=== PATIENT | male | born 1950 | race Caucasian/White ===

== ENCOUNTER 2016-10-05 19:49 | Emergency (ER) | payer MEDICARE, BC ==
[2016-10-05] MEDS ORDERED: ASPIRIN 81 MG CHEW PO STA (22:01)
[2016-10-05] MEDS ORDERED: SODIUM CHLORIDE 0.9% 1,000 ML IV STA (22:01)
[2016-10-05 22:40] LABS: Basophils # (A) 0.1 k/uL (0-0.2); Basophils % (A) 1 %; CH 32.5; Eosinophils # (A) 0.3 k/uL (0-0.7); Eosinophils % (A) 3 %; HCT 43.3 % (39.0-53.0); HDW 2.21; HGB 15.1 gm/dL (13.0-17.5); Luc # (Auto) 0.22; Luc % (Auto) 2; Lymphocytes # (A) 2.5 k/uL (1.0-4.8); Lymphocytes % (A) 25 %; MCH 32.4 pg (25.0-35.0); MCHC 34.8 g/dL (31.0-37.0); MCV 93.2 fL (80.0-100.0); Monocytes # (A) 0.7 k/uL (0-1.0); Monocytes % (A) 7 %; Neutrophils # (A) 6.1 k/uL (1.3-7.7); Neutrophils % (A) 63 %; RBC 4.65 m/uL (4.30-5.90); RDW 13.3 % (11.5-15.5); WBC 9.8 k/uL (3.8-10.6); WBC (Perox) 8.75
[2016-10-05 22:50] LABS: ALT 54 U/L (21-72); AST 28 U/L (17-59); Alkaline Phosphatase 71 U/L (38-126); Amylase 68 U/L (30-110); Anion Gap 11 mmol/L; Blood Urea Nitrogen 15 mg/dL (9-20); Calcium 9.2 mg/dL (8.4-10.2); Carbon Dioxide 23 mmol/L (22-30); Chloride 106 mmol/L (98-107); Glucose 87 mg/dL (74-99); Magnesium 1.8 mg/dL (1.6-2.3); Non-African American GFR(MDRD) >60 (>60 ml/min/1.73 sqM); Potassium 4.2 mmol/L (3.5-5.1); Sodium 140 mmol/L (137-145); Total Bilirubin 0.4 mg/dL (0.2-1.3); Total Protein 6.4 g/dL (6.3-8.2)
[2016-10-05 22:51] LABS: Partial Thromboplastin Time 22.8 sec (22.0-30.0); Prothrombin Time 10.3 sec (9.0-12.0)
[2016-10-05 23:00] LABS: Creatine Kinase 256 U/L (55-170)
[2016-10-05] MEDS ORDERED: KETOROLAC 30 MG/ML 1 ML VIAL IVP STA (23:03)
[2016-10-05] MEDS ORDERED: MAG HYDROX/AL HYDROX/SIMETH 30 ML, HYOSCYAMINE ELIXIR 10 ML, CIMETIDINE HCL 300 MG, LID... PO STA ×4 (23:03)
--- NOTE | 2016-10-05 23:08 | ED ---
Back Pain HPI - General Chief Complaint: Back Pain/Injury Stated Complaint: Back Pain Source: patient, RN notes reviewed, old records reviewed Limitations: no limitations - History of Present Illness Initial Comments: This is a 66-year-old male presenting to the emergency Department chief complaint of lower back pain radiates down both of his legs for the past 3 weeks. He reports it seemed to start after a golf outing. He also reports that he's had some pain that seems to be continuous. He states that it's been going on for the past 3 weeks or longer than this. He states that he is not specifically short of breath here. He reports that he does have a history of cardiac stents. He states that he is was had previously normal EKGs but when they did a cardiac catheterization they noted that he had significantly clogged arteries. Patient reports no abnormal shortness of breath. He states it seems just to be a dull ache like a chest pain. He could relate this to being to GERD as well. Patient denies any saddle anesthesias. - Related Data Home Medications Medication Instructions Recorded Confirmed Aspirin EC [Ecotrin Low Dose] 81 mg PO DAILY 10/05/16 10/05/16 Atorvastatin [Lipitor] 40 mg PO HS 10/05/16 10/05/16 Beclomethasone Dipropionate [Qvar 1 puff INHALATION RT-DAILY PRN 10/05/16 80 mcg] Fluticasone Nasal [place] [Flonase 2 spr EA NOSTRIL DAILY PRN 10/05/16 10/05/16 Nasal [place]] Garlic 1 tab PO DAILY 10/05/16 10/05/16 Ginkgo Biloba 500 mg PO DAILY 10/05/16 10/05/16 Hydrocodone/Acetaminophen 1 tab PO QID PRN 10/05/16 10/05/16 [Hydrocodone/Acetaminophen 10-300] L.acidoph,Paracasei, B.lactis 1 cap PO DAILY 10/05/16 10/05/16 [Probiotic] Levothyroxine Sodium [Synthroid] 25 mcg PO DAILY 10/05/16 10/05/16 Losartan [Cozaar] 25 mg PO DAILY 10/05/16 10/05/16 Lutein 20 mg PO DAILY 10/05/16 10/05/16 Melatonin 10 mg PO HS PRN 10/05/16 10/05/16 Methylsulfonylmethane [MSM] 1,000 mg PO DAILY 10/05/16 10/05/16 Naproxen 500 mg PO DAILY PRN 10/05/16 10/05/16 [place] Q Plus 1 tab PO DAILY 10/05/16 10/05/16 Prasugrel [Effient] 10 mg PO DAILY 10/05/16 10/05/16 amLODIPine [Norvasc] 5 mg PO DAILY 10/05/16 10/05/16 Previous Rx's Medication Instructions Recorded Cyclobenzaprine [Flexeril] 10 mg PO TID #15 tab 10/06/16 HYDROcodone/APAP 10-325MG [[place] 1 tab PO Q6H PRN #10 tab 10/06/16 10-325] Allergies Allergy/AdvReac Type Severity Reaction Status Date / Time Penicillins Allergy Unknown Verified 10/05/16 20:44 Childhood Review of Systems ROS Statement: Those systems with pertinent positive or pertinent negative responses have been documented in the HPI. ROS Other: All systems not noted in ROS Statement are negative. Past Medical History Past Medical History: Chest Pain / Angina, Hyperlipidemia, Hypertension History of Any Multi-Drug Resistant Organisms: None Reported Past Surgical History: Heart Catheterization With Stent, Joint Replacement Additional Past Surgical History / Comment(s): right hip, left knee arthroscopy , cyst left ankle. Past Psychological History: No Psychological Hx Reported Smoking Status: Never smoker Past Alcohol Use History: None Reported Past Drug Use History: None Reported General Exam - General Exam Comments Initial Comments: 56-year-old male. No acute distress. Limitations: no limitations General appearance: alert, in no apparent distress Head exam: Present: atraumatic, normocephalic, normal inspection Eye exam: Present: normal appearance, PERRL, EOMI. Absent: scleral icterus, conjunctival injection, periorbital swelling ENT exam: Present: normal exam, mucous membranes moist Neck exam: Present: normal inspection. Absent: tenderness, meningismus, lymphadenopathy Respiratory exam: Present: normal lung sounds bilaterally. Absent: respiratory distress, wheezes, rales, rhonchi, stridor Cardiovascular Exam: Present: regular rate, normal rhythm, normal heart sounds. Absent: systolic murmur, diastolic murmur, rubs, gallop, clicks GI/Abdominal exam: Present: soft, normal bowel sounds. Absent: distended, tenderness, guarding, rebound, rigid Extremities exam: Present: normal inspection, full ROM, normal capillary refill. Absent: tenderness, pedal edema, joint swelling, calf tenderness Back exam: Present: normal inspection, tenderness (lumbar spinal tenderness. ) Neurological exam: Present: alert, oriented X3, CN II-XII intact Psychiatric exam: Present: normal affect, normal mood Skin exam: Present: warm, dry, intact, normal color. Absent: rash Course Vital Signs 10/05/16 10/06/16 19:57 00:58 Temperature 98.8 F 98.2 F Pulse Rate 71 86 Respiratory 20 16 Rate Blood Pressure 179/92 158/78 O2 Sat by Pulse 98 99 Oximetry Medical Decision Making - Medical Decision Making This is a 66-year-old male presenting to the emergency Department chief complaint of lower back pain radiates down both of his legs for the past 3 weeks. He reports it seemed to start after a golf outing. He also reports that he's had some pain that seems to be continuous. He states that it's been going on for the past 3 weeks or longer than this. He states that he is not specifically short of breath here. He reports that he does have a history of cardiac stents. He states that he is was had previously normal EKGs but when they did a cardiac catheterization they noted that he had significantly clogged arteries. Patient reports no abnormal shortness of breath. He states it seems just to be a dull ache like a chest pain. He could relate this to being to GERD as well. Patient denies any saddle anesthesias. Patietnt EKG and cardiac enzymes are normal. CXR reviewed, negative for any acute process. Patient lumbar spine has chronic degenerative changes. Discussed that for the length of time for chest pain, andnormal lab work means it is likely another etiology such as GERD. Discussed close follow up with PCP for further evaluation. Patient will be discharged with pain medication for his back pain. - Lab Data Result diagrams: 10/05/16 22:25 10/05/16 22:25 Lab Results 10/05/16 10/05/16 10/05/16 Range/Units 22:25 22:25 22:25 WBC 9.8 (3.8-10.6) k/uL RBC 4.65 (4.30-5.90) m/uL Hgb 15.1 (13.0-17.5) gm/dL Hct 43.3 (39.0-53.0) % MCV 93.2 (80.0-100.0) fL MCH 32.4 (25.0-35.0) pg MCHC 34.8 (31.0-37.0) g/dL RDW 13.3 (11.5-15.5) % Plt Count 216 (150-450) k/uL Neutrophils % 63 % Lymphocytes % 25 % Monocytes % 7 % Eosinophils % 3 % Basophils % 1 % Neutrophils # 6.1 (1.3-7.7) k/uL Lymphocytes # 2.5 (1.0-4.8) k/uL Monocytes # 0.7 (0-1.0) k/uL Eosinophils # 0.3 (0-0.7) k/uL Basophils # 0.1 (0-0.2) k/uL PT (9.0-12.0) sec INR (<1.2) APTT (22.0-30.0) sec Sodium 140 (137-145) mmol/L Potassium 4.2 (3.5-5.1) mmol/L Chloride 106 (98-107) mmol/L Carbon Dioxide 23 (22-30) mmol/L Anion Gap 11 mmol/L BUN 15 (9-20) mg/dL Creatinine 0.90 (0.66-1.25) mg/dL Est GFR (MDRD) Af Amer >60 (>60 ml/min/1.73 sqM) Est GFR (MDRD) Non-Af >60 (>60 ml/min/1.73 sqM) Glucose 87 (74-99) mg/dL Calcium 9.2 (8.4-10.2) mg/dL Magnesium 1.8 (1.6-2.3) mg/dL Total Bilirubin 0.4 (0.2-1.3) mg/dL AST 28 (17-59) U/L ALT 54 (21-72) U/L Alkaline Phosphatase 71 (38-126) U/L Total Creatine Kinase 256 H (55-170) U/L CK-MB (CK-2) 3.8 H* (0.0-2.4) ng/mL CK-MB (CK-2) Rel Index 1.5 Troponin I <0.012 (0.000-0.034) ng/mL NT-Pro-B Natriuret Pep pg/mL Total Protein 6.4 (6.3-8.2) g/dL Albumin 3.8 (3.5-5.0) g/dL Amylase 68 (30-110) U/L Lipase 249 (23-300) U/L 10/05/16 10/05/16 Range/Units 22:25 22:25 WBC (3.8-10.6) k/uL RBC (4.30-5.90) m/uL Hgb (13.0-17.5) gm/dL Hct (39.0-53.0) % MCV (80.0-100.0) fL MCH (25.0-35.0) pg MCHC (31.0-37.0) g/dL RDW (11.5-15.5) % Plt Count (150-450) k/uL Neutrophils % % Lymphocytes % % Monocytes % % Eosinophils % % Basophils % % Neutrophils # (1.3-7.7) k/uL Lymphocytes # (1.0-4.8) k/uL Monocytes # (0-1.0) k/uL Eosinophils # (0-0.7) k/uL Basophils # (0-0.2) k/uL PT 10.3 (9.0-12.0) sec INR 1.0 (<1.2) APTT 22.8 (22.0-30.0) sec Sodium (137-145) mmol/L Potassium (3.5-5.1) mmol/L Chloride (98-107) mmol/L Carbon Dioxide (22-30) mmol/L Anion Gap mmol/L BUN (9-20) mg/dL Creatinine (0.66-1.25) mg/dL Est GFR (MDRD) Af Amer (>60 ml/min/1.73 sqM) Est GFR (MDRD) Non-Af (>60 ml/min/1.73 sqM) Glucose (74-99) mg/dL Calcium (8.4-10.2) mg/dL Magnesium (1.6-2.3) mg/dL Total Bilirubin (0.2-1.3) mg/dL AST (17-59) U/L ALT (21-72) U/L Alkaline Phosphatase (38-126) U/L Total Creatine Kinase (55-170) U/L CK-MB (CK-2) (0.0-2.4) ng/mL CK-MB (CK-2) Rel Index Troponin I (0.000-0.034) ng/mL NT-Pro-B Natriuret Pep 60 pg/mL Total Protein (6.3-8.2) g/dL Albumin (3.5-5.0) g/dL Amylase (30-110) U/L Lipase (23-300) U/L 10/06/16 00:37 EKG shows normal sinus rhythm. Ventricular rate of 61 beats were minute. Verbal 164 ms. QRS ration 80 ms. QT QTc is 424-426 ms Disposition Clinical Impression: Chronic back pain, Atypical chest pain Disposition: HOME SELF-CARE Condition: Good Instructions: Chest Pain (ED), Chronic Back Pain (ED) Additional Instructions: Patient arrives to follow-up with her primary care provider within the next 24- 48 hours. Take the pain medications as prescribed. Also is a muscle relaxers as directed. Apply heat and ice to her back. Recommended follow up with her primary care return or recurrence to further evaluation for aortic chest pain and possible esophageal issues. Prescriptions: Cyclobenzaprine [Flexeril] 10 mg PO TID #15 tab HYDROcodone/APAP 10-325MG [[place] 10-325] 1 tab PO Q6H PRN #10 tab PRN Reason: Pain Referrals: Corey Matson MD [Primary Care Provider] - 1-2 days Time of Disposition: 00:33
[2016-10-05 23:13] LABS: Troponin I <0.012 ng/mL (0.000-0.034)
[2016-10-05 23:23] LABS: Creatine Kinase MB 3.8 ng/mL (0.0-2.4)
--- NOTE | 2016-10-05 23:58 | XR ---
EXAM: XR Chest, 2 Views CLINICAL HISTORY: Reason: Chest Pain TECHNIQUE: Frontal and lateral views of the chest. COMPARISON: None FINDINGS: Lungs/pleura: Normal. No focal consolidation. No pleural effusion or pneumothorax. Heart/mediastinum: Normal. No cardiomegaly. Soft tissues: Unremarkable. Bones: No acute fracture. Degenerative changes of the acromioclavicular joints. IMPRESSION: No acute disease identified.
--- NOTE | 2016-10-06 | XR ---
EXAM: XR Lumbar Spine, 2 or 3 Views CLINICAL HISTORY: Reason: lower back pain that radiates down both legs x a month. More pain after golfing today. TECHNIQUE: Frontal and lateral views of the lumbar spine. COMPARISON: None FINDINGS: Bones: No acute fracture or subluxation identified. Mild multilevel degenerative disc disease throughout the lumbar spine. Soft tissues: Normal. IMPRESSION: No acute abnormality identified. Mild degenerative disc disease.
[2016-10-06] MEDS ORDERED: HYDROmorphone 1 MG/ML 1 ML SYRINGE IVP STA (00:34)
[2016-10-06] MEDS ORDERED: ORPHENADRINE 30 MG/ML 2 ML VIAL IVP STA (00:34)
[2016-10-06 00:59] VITALS: BP 158/78; PULSE 86; RESP 16; TEMP 98.2
== END 2016-10-06 00:58 | disposition home or self-care (01) ==
LOC: EC 19:49
DX: M54.5 Low back pain (principal); G89.29 Other chronic pain; R07.9 Chest pain, unspecified; I10 Essential (primary) hypertension; E78.5 Hyperlipidemia, unspecified; Z95.5 Presence of coronary angioplasty implant and graft; Z79.82 Long term (current) use of aspirin; Z79.899 Other long term (current) drug therapy; Z88.0 Allergy status to penicillin
CPT/HCPCS: 36415; 93005; 83880; 80053; 82150; 82550; 82553; 83690; 83735; 84484; 85025; 85610; 85730; 71020; 72100; 99284; 96374; 96375 ×2; 96361 ×3; J2360; J1885; J1170

== ENCOUNTER → 2016-10-17 | Outpatient (CLI) | payer BC, MEDICARE, OTHER ==
--- NOTE | 2016-10-17 21:31 | MR ---
EXAMINATION TYPE: MR lumbar spine wo con DATE OF EXAM: 10/17/2016 COMPARISON: Lumbar spine x-ray October 05, 2016. HISTORY: Other intervertebral disc degeneration per order. Low back pain radiating into bilateral but tocks for one month per patient. TECHNIQUE: Multiplanar, multisequence imaging of the lumbar spine is performed without IV contrast. FINDINGS: Survey images shows artifact right pelvis likely from metallic hardware possibly from hip a rthroplasty. Sagittal images of the lumbar spine show vertebral body heights to appear satisfactory. There is some loss of normal lumbar lordosis or straightening appreciated. Multilevel disc desiccatio n is seen. There is mild to moderate multilevel disc space narrowing with relative sparing of L3-L4 l evel. Multilevel posterior disc herniations are seen most prominent at L2-L3 level on sagittal images . The conus medullaris is normal in position and signal ending at superior L1 level. There is mild t o moderate multilevel anterior spurring seen. There is heterogeneous increased T1 and T2 signal consi stent with [place] type II degenerative change centered at L2-L3 disc space. Large hemangioma is noted involving anterior portion of L4 vertebra. Axial images show the T12-L1 level to appear within normal limits. Axial images at the L1-L2 level show moderate broad disc bulge with central disc protrusion component effacing anterior thecal sac on axial image 32. Bilateral neural foramina are patent. Axial images at L2-L3 level show beginning prominence of epidural fat. Spinal canal is small caliber. There is moderate to severe broad disc bulge effacing anterior thecal sac. There is right extradural extra medullary lesion on axial image 27 just above disc herniation that is isointense on T1-weighte d images to spinal canal but hyperintense on T2-weighted images. Findings could reflect free disc fra gment. It encroaches along right lateral margin of spinal canal measuring approximately [address] Bilateral neural foramina are patent at this level. Axial images at L3-L4 level show mild/moderate broad-based posterior disc protrusion. Spinal canal is grossly preserved. There is mild right greater than left anterior inferior neural foraminal narrowin g at this level identified. Axial images L4-L5 level show mild to moderate facet degenerative changes effacing posterior lateral thecal sac. There is broad disc bulge with central disc protrusion component effacing anterior thecal sac and axial image 10. There is mild to moderate bilateral anterior inferior neural foraminal narro wing at this level identified. Axial images at L5-S1 level show mild facet degenerative changes bilaterally. There is prominence of epidural fat at this level. Spinal canal is preserved. There is mild bilateral neural foraminal narro wing at this level due to facet arthropathy. No suspicious retroperitoneal findings are seen. Paraspinal muscle bulk shows asymmetric mild to mode rate right-sided iliopsoas atrophy. IMPRESSION: Straightening of lumbar spine with multilevel degenerative changes seen, most prominent f indings are noted L2-L3 and L4-L5 levels. There is suspected free disc fragment right extradural leve l of thecal sac, other etiologies are not excluded. Other degenerative findings are noted as detailed above. Asymmetric mild to moderate right-sided iliopsoas muscular atrophy is noted.
== END | disposition home or self-care (01) ==
LOC: RADMRIMAIN 20:16
PROVIDERS: ATTEND Internal Medicine
DX: M47.817 Spondylosis without myelopathy or radiculopathy, lumbosacral region (principal); M62.58 Muscle wasting and atrophy, not elsewhere classified, other site
CPT/HCPCS: 72148

== ENCOUNTER 2016-11-05 10:02 | Day surgery (SDC) | payer BC, MEDICARE, OTHER ==
[2016-11-04 08:42] VITALS: BMI 40.6
[~2016-11-05 10:02] MED LIST: LACTATED RINGERS 1,000 ML IV SCH
[2016-11-05 11:52] VITALS: TEMP 97
[2016-11-05] MEDS ORDERED: LIDOCAINE 1% 20 ML VIAL (10MG/ML) FOR IV START INTRADERMA ONE (12:02)
[2016-11-05] MEDS ORDERED: PROPOFOL 10 MG/ML 20 ML VIAL IV ONE (12:21)
--- NOTE | 2016-11-05 12:39 | P.PCN ---
Date of Procedure: 11/05/16 Preoperative Diagnosis: Postoperative Diagnosis: Procedure(s) Performed: BRIEF HISTORY: Patient is a 66-year-old, pleasant, white male, scheduled for an upper endoscopy as a part of evaluation of chest pressure and intermittent dysphagia to solids for the last several months duration.. PROCEDURE PERFORMED: Esophagogastroduodenoscopy. PREOPERATIVE DIAGNOSIS: Chest pressure/intermittent dysphagia to solids. IV sedation per anesthesia. PROCEDURE: After informed consent was obtained, the patient was brought into the endoscopy unit. IV sedation was administered by Anesthesia under continuous monitoring. Initially the Olympus GIF-140 video endoscope was inserted into the mouth. Esophagus intubated without any difficulty. It was gradually advanced into the stomach and duodenum and carefully examined. The bulb and the second part of the duodenum appeared normal. The scope at this time was withdrawn to the stomach, adequately insufflated with air, and upon careful examination, mucosa of the antrum, had mild gastritis and biopsies were done from this area. The body, cardia and the fundus appeared normal. The scope was then withdrawn into the esophagus. The GE junction was located at 39 cm from the incisors. There were 2 superficial erosions at the GE junction consistent with LA grade B reflux esophagitis. The rest of the esophagus appeared normal and the patient tolerated the procedure well. IMPRESSION: 1. LA grade B reflux esophagitis. 2 , mild antral gastritis. RECOMMENDATIONS: The findings of this examination were discussed with the patient as well as her hoarseness family. He was advised to follow with the biopsy results. He was given a prescription for Zantac 150 milligrams twice daily and was briefly educated about antireflux measures.. Implants: Indications for Procedure: Operative Findings: Description of Procedure:
[2016-11-05 13:01] VITALS: RESP 18
[2016-11-05 13:19] VITALS: BP 145/92; PULSE 65
== END 2016-11-05 13:39 | disposition home or self-care (01) ==
LOC: ORWHC2ENDO 10:02
PROVIDERS: ATTEND Internal Medicine Gastroenterology
DX: K21.0 Gastro-esophageal reflux disease with esophagitis (principal); K29.50 Unspecified chronic gastritis without bleeding; I25.10 Atherosclerotic heart disease of native coronary artery without angina pectoris; I10 Essential (primary) hypertension; F17.290 Nicotine dependence, other tobacco product, uncomplicated; Z95.5 Presence of coronary angioplasty implant and graft; G47.33 Obstructive sleep apnea (adult) (pediatric); Z79.51 Long term (current) use of inhaled steroids; Z79.899 Other long term (current) drug therapy; Z88.0 Allergy status to penicillin
CPT/HCPCS: 43239; 88305; 88342

== ENCOUNTER → 2017-10-07 | Outpatient (CLI) | payer MEDICARE, BC, OTHER ==
--- NOTE | 2017-10-07 13:17 | XR ---
EXAMINATION TYPE: XR KUB DATE OF EXAM: 10/07/2017 COMPARISON: NONE HISTORY: Renal calcification, pain TECHNIQUE: One view abdominal series FINDINGS: The osseous structures are intact. The bowel gas pattern is nonspecific. Postsurgical change involvi ng the right. Hypertrophic change spine. Left changes of sacroiliitis. There is a calcification overlying the left sacrum measuring 4.2 mm this is nonspecific location. Impression: 1. There is a left hemipelvic calcification measuring 4.2 mm which is nonspecific. If there is concer n for ureteral calculus correlate with CT scan.
== END | disposition home or self-care (01) ==
LOC: RADXRMAIN 12:33
PROVIDERS: ATTEND Urology
DX: N50.89 Other specified disorders of the male genital organs (principal)
CPT/HCPCS: 74018

== ENCOUNTER 2018-05-26 10:37 | Observation (INO) | payer BC, MEDICARE, OTHER ==
[2018-05-26] MEDS ORDERED: ASPIRIN 81 MG PO STA (11:11)
--- NOTE | 2018-05-26 11:15 | ED ---
General Adult HPI - General Chief complaint: Shortness of Breath Stated complaint: chest pain Time Seen by Provider: 05/26/18 10:49 Source: patient Mode of arrival: wheelchair Limitations: no limitations - History of Present Illness Initial comments: Dictation was produced using Rico dictation software. please excuse any grammatical, word or spelling errors. Chief Complaint: 68-year-old male presents with left neck pain 3 weeks and chest pain and shortness of breath since last night. History of Present Illness: Patient is 68-year-old male presents with multiple complaints at this time. Patient states her last 3-4 weeks she's been complaining of some neck pain. Patient also does feel paresthesias to the left lateral arm. Patient has his symptoms evaluated by chiropractor. He states he's also had multiple TENS unit. States his pain is stable however he is here more for chest pain or shortness of breath. Patient has history of coronary artery disease. 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 Patient was given nitroglycerin last night with improvement of symptoms. He reports today because patient still feeling slightly short of breath. When asked if he is concerned more about his chest pain and shortness of breath versus is left upper extremity neck symptoms he reports that his shortness of breath. Patient is scheduled to have a cardiac stress test soon however given the presence of his symptoms he came to the emergency department. Patient's collar pointer is Dr. Wagner at [facility]. Patient's chest and dyspnea symptoms he reports feeling unrelated The ROS documented in this emergency department record has been reviewed and confirmed by me. Those systems with pertinent positive or negative responses have been documented in the HPI. All other systems are other negative and/or noncontributory. PHYSICAL EXAM: General Impression: Alert and oriented x3, mild acute distress HEENT: Normocephalic atraumatic, extra-ocular movements intact, pupils equal and reactive to light bilaterally, mucous membranes moist. Cardiovascular: Heart regular rate and rhythm, S1&S2 audible, no murmurs, rubs or gallops Chest: Lungs clear to auscultation bilaterally, no rhonchi, no wheeze, no rales Abdomen: Bowel sounds present, abdomen soft, non-tender, non-distended, no organomegaly Musculoskeletal: Pulses present and equal in all extremities, no peripheral edema Motor: no focal deficits noted Neurological: CN II-XII grossly intact, no focal motor or sensory deficits noted Skin: Intact with no visualized rashes Psych: Normal affect and mood ED course: 68-year-old male presents with chest pain and shortness of breath since yesterday. He does report associated diaphoresis. All signs upon arrival are within acceptable limits. Patient denies any chest or dyspnea symptoms at this time. Patient also has some left upper extremity pain which appear to be consistent with radiculopathy given that pain starts in the neck and radiate down to his lateral left upper extremity. At this time there is no clinical suspicion that his chest pain and shortness of breath symptoms are related given that his neck and left upper showing symptoms have been chronic over the last 3- 4 weeks. She was chest pain and shortness of breath symptoms started yesterday and was improved with nitroglycerin.Laboratory evaluation obtained. CBC, coag panel, d-dimer negative. Metabolic panel is unremarkable. Cardiac enzymes negative. Chest x-ray is unremarkable. Patient's clinical presentation is consistent for atypical chest pain with typical features. He does report some improvement of symptoms with nitroglycerin. Patient to be admitted to observation for serial troponins and cardiology consultation. Given progression of symptoms is concerned that patient's symptoms reflect acute coronary syndrome given his comorbidities and history of coronary artery disease. Patient given aspirin. At this point patient does not complain of any symptoms at this time. We will withhold heparin at this time. EKG interpretation: Ventricular rate 66, normal sinus rhythm, MI interval 152, QS 86, QTC 408. No MI prolongation, no QTC prolongation, no ST or T-wave changes noted. Overall, this EKG is unremarkable - Related Data Home Medications Medication Instructions Recorded Confirmed Aspirin EC [Ecotrin Low Dose] 81 mg PO DAILY 10/05/16 11/05/16 Beclomethasone Dipropionate [Qvar 1 puff INHALATION RT-DAILY PRN 10/05/16 05/26/18 80 mcg] Winn Q Plus 1 tab PO DAILY 10/05/16 05/26/18 amLODIPine [Norvasc] 5 mg PO DAILY 10/05/16 05/26/18 Multivitamins, Thera [Multivitamin 1 tab PO DAILY 11/04/16 05/26/18 (formulary)] Vits A,C,E/Lutein/Minerals 1 each PO DAILY 11/04/16 05/26/18 [Ocuvite with Lutein Tablet] Atorvastatin [Lipitor] 40 mg PO HS 05/26/18 05/26/18 Cyclobenzaprine [Flexeril] 10 mg PO DAILY PRN 05/26/18 05/26/18 Fluticasone Nasal [place] [Flonase 1 spray EA NOSTRIL DAILY 05/26/18 05/26/18 Nasal [place]] Losartan [Cozaar] 50 mg PO DAILY 05/26/18 05/26/18 Nitroglycerin Sl Tabs [Nitrostat] 0.4 mg SL DIRECTED 05/26/18 05/26/18 Allergies Allergy/AdvReac Type Severity Reaction Status Date / Time Latex, Natural Rubber Allergy Unknown Verified 05/26/18 11:13 Penicillins Allergy Unknown Verified 05/26/18 11:13 Childhood Review of Systems ROS Statement: Those systems with pertinent positive or pertinent negative responses have been documented in the HPI. ROS Other: All systems not noted in ROS Statement are negative. Past Medical History Past Medical History: Coronary Artery Disease (CAD), Chest Pain / Angina, Hyperlipidemia, Hypertension History of Any Multi-Drug Resistant Organisms: None Reported Past Surgical History: Heart Catheterization With Stent Additional Past Surgical History / Comment(s): right hip, left knee arthroscopy, cyst left ankle. Past Psychological History: No Psychological Hx Reported Smoking Status: Never smoker Past Alcohol Use History: None Reported Past Drug Use History: None Reported General Exam Limitations: no limitations Course Vital Signs 05/26/18 10:39 Temperature 98 F Pulse Rate 75 Respiratory 19 Rate Blood Pressure 157/94 O2 Sat by Pulse 95 Oximetry Medical Decision Making - Lab Data Result diagrams: 05/26/18 11:01 05/26/18 11:01 Lab Results 05/26/18 05/26/18 05/26/18 Range/Units 11:01 11:01 11:01 WBC 5.7 (3.8-10.6) k/uL RBC 4.89 (4.30-5.90) m/uL Hgb 15.2 (13.0-17.5) gm/dL Hct 45.9 (39.0-53.0) % MCV 93.8 (80.0-100.0) fL MCH 31.0 (25.0-35.0) pg MCHC 33.0 (31.0-37.0) g/dL RDW 12.8 (11.5-15.5) % Plt Count 232 (150-450) k/uL Neutrophils % GROUP THERAPIST Lymphocytes % GROUP THERAPIST Monocytes % GROUP THERAPIST Eosinophils % GROUP THERAPIST Basophils % GROUP THERAPIST Neutrophils # GROUP THERAPIST Lymphocytes # GROUP THERAPIST Monocytes # GROUP THERAPIST Eosinophils # GROUP THERAPIST Basophils # GROUP THERAPIST PT 10.0 (9.0-12.0) sec INR 0.9 (<1.2) APTT 23.8 (22.0-30.0) sec D-Dimer 0.42 (<0.60) mg/L FEU Sodium 139 (137-145) mmol/L Potassium 4.6 (3.5-5.1) mmol/L Chloride 105 (98-107) mmol/L Carbon Dioxide 27 (22-30) mmol/L Anion Gap 7 mmol/L BUN 13 (9-20) mg/dL Creatinine 0.84 (0.66-1.25) mg/dL Est GFR (CKD-EPI)AfAm >90 (>60 ml/min/1.73 sqM) Est GFR (CKD-EPI)NonAf >90 (>60 ml/min/1.73 sqM) Glucose 87 (74-99) mg/dL Calcium 9.9 (8.4-10.2) mg/dL Magnesium 1.9 (1.6-2.3) mg/dL Total Bilirubin 0.7 (0.2-1.3) mg/dL AST 40 (17-59) U/L ALT 52 (21-72) U/L Alkaline Phosphatase 58 (38-126) U/L Troponin I (0.000-0.034) ng/mL Total Protein 7.0 (6.3-8.2) g/dL Albumin 4.1 (3.5-5.0) g/dL 05/26/18 Range/Units 11:01 WBC (3.8-10.6) k/uL RBC (4.30-5.90) m/uL Hgb (13.0-17.5) gm/dL Hct (39.0-53.0) % MCV (80.0-100.0) fL MCH (25.0-35.0) pg MCHC (31.0-37.0) g/dL RDW (11.5-15.5) % Plt Count (150-450) k/uL Neutrophils % Lymphocytes % Monocytes % Eosinophils % Basophils % Neutrophils # Lymphocytes # Monocytes # Eosinophils # Basophils # PT (9.0-12.0) sec INR (<1.2) APTT (22.0-30.0) sec D-Dimer (<0.60) mg/L FEU Sodium (137-145) mmol/L Potassium (3.5-5.1) mmol/L Chloride (98-107) mmol/L Carbon Dioxide (22-30) mmol/L Anion Gap mmol/L BUN (9-20) mg/dL Creatinine (0.66-1.25) mg/dL Est GFR (CKD-EPI)AfAm (>60 ml/min/1.73 sqM) Est GFR (CKD-EPI)NonAf (>60 ml/min/1.73 sqM) Glucose (74-99) mg/dL Calcium (8.4-10.2) mg/dL Magnesium (1.6-2.3) mg/dL Total Bilirubin (0.2-1.3) mg/dL AST (17-59) U/L ALT (21-72) U/L Alkaline Phosphatase (38-126) U/L Troponin I <0.012 (0.000-0.034) ng/mL Total Protein (6.3-8.2) g/dL Albumin (3.5-5.0) g/dL Disposition Clinical Impression: Chest pain Disposition: ADMITTED IP TO THIS [facility] Condition: Fair Referrals: Jose Pina DO [Primary Care Provider] - 1-2 days Decision Time: 12:20
[2018-05-26 11:31] LABS: HCT 45.9 % (39.0-53.0); HGB 15.2 gm/dL (13.0-17.5); MCV 93.8 fL (80.0-100.0); Mean Platelet Volume 6.8; Platelet Count 232 k/uL (150-450); RBC 4.89 m/uL (4.30-5.90); RDW 12.8 % (11.5-15.5); WBC 5.7 k/uL (3.8-10.6)
--- NOTE | 2018-05-26 11:39 | XR ---
EXAMINATION TYPE: XR chest 2V DATE OF EXAM: 05/26/2018 COMPARISON: Chest x-ray October 05, 2016 HISTORY: Chest pain into left arm with shortness of breath TECHNIQUE: Frontal and lateral views of the chest are obtained. FINDINGS: Underlying emphysematous change is felt present. There is no focal air space opacity, pleu ral effusion, or pneumothorax seen. The cardiac silhouette size is stable and upper limits of normal with ectatic thoracic aorta. The osseous structures are intact. IMPRESSION: No acute cardiopulmonary process. No significant change from prior.
[2018-05-26 11:45] LABS: ALT 52 U/L (21-72); AST 40 U/L (17-59); Albumin 4.1 g/dL (3.5-5.0); Alkaline Phosphatase 58 U/L (38-126); Anion Gap 7 mmol/L; Blood Urea Nitrogen 13 mg/dL (9-20); Calcium 9.9 mg/dL (8.4-10.2); Carbon Dioxide 27 mmol/L (22-30); Chloride 105 mmol/L (98-107); Glucose 87 mg/dL (74-99); Magnesium 1.9 mg/dL (1.6-2.3); Potassium 4.6 mmol/L (3.5-5.1); Sodium 139 mmol/L (137-145); Total Bilirubin 0.7 mg/dL (0.2-1.3)
[2018-05-26 11:49] LABS: D-Dimer 0.42 mg/L FEU (<0.60); INR 0.9 (<1.2); Partial Thromboplastin Time 23.8 sec (22.0-30.0)
[2018-05-26] MEDS ORDERED: NITROGLYCERIN SL TABS 0.4 MG TAB SUBLINGUAL PRN (12:17)
[2018-05-26 12:21] LABS: Lymphocytes % (A) 28 %; Neutrophils % (A) 52 %
[2018-05-26 12:22] LABS: Basophils % (A) 1 %; Eosinophils % (A) 5 %; Monocytes % (A) 11 %
[2018-05-26 12:23] LABS: Lymphocytes # (A) 1.6 k/uL (1.0-4.8); Monocytes # (A) 0.6 k/uL (0-1.0)
[2018-05-26 12:24] LABS: Eosinophils # (A) 0.3 k/uL (0-0.7)
[2018-05-26 15:58] VITALS: RESP 18
--- NOTE | 2018-05-26 16:11 | HP ---
HISTORY AND PHYSICAL CHIEF COMPLAINT: [id number] male presents with left neck pain x3 weeks radiating down his left leg associated with some atypical chest pain and some shortness of breath. He is being treated by a chiropractor for cervical disc disease with a TENS unit. He is here more for his chest pain or shortness of breath than his neck. He has a history of coronary artery disease and LAD stent 3 years ago. He was given nitroglycerin last night with improvement of his symptoms. He became short of breath. He had a negative D-dimer in the ER and a negative chest x-ray. He was admitted for cardiac stress test after [place] has been ruled out. REVIEW OF SYSTEMS: Fourteen-point review of systems negative except for mentioned in HPI. MEDICATION LIST: 1. Amlodipine 5 mg daily. 2. Qvar 80 two puffs b.i.d. 3. Ecotrin daily. 4. Lipitor 40 mg daily. 5. Cozaar 50 mg daily. 6. Nitroglycerin sublingually p.r.n. ALLERGIES: PENICILLIN. PHYSICAL EXAMINATION: Temperature 98, pulse 75, respiratory rate 16 to 20, blood pressure 157/94, oxygen 95%. LABS: Essentially normal. Negative D-dimer. Negative chest x-ray. ASSESSMENT: 1. Atypical chest pain. 2. History of asthma. 3. History of coronary artery disease with percutaneous transluminal coronary angioplasty 3 years ago. Will start his Qvar inhaler. Rule him out for [place]. Await cardiology consult. MMODL / IJN: [id number] /
--- NOTE | 2018-05-26 16:15 | CT ---
EXAMINATION TYPE: CT neck chest without con DATE OF EXAM: 05/26/2018 COMPARISON: NONE HISTORY: lt neck/lt shoulder pain CT DLP: 1156.3 mGycm. Automated Exposure Control for Dose Reduction was Utilized. TECHNIQUE: CT scan of the neck and thorax are performed without IV contrast. FINDINGS: NECK: Note is made lack of IV contrast makes evaluation for subtle mucosal lesions and neck adenopath y suboptimal. Visualized airway is grossly clear. Thyroid gland is normal in size. Parotid and subman dibular glands are felt within normal limits. There are scattered subcentimeter lymph nodes throughou t the neck bilaterally. No definitive greater than 1 cm adenopathy is seen. Cervical spine shows mode rate narrowing and spurring at C6-C7 level. There is moderate mucosal thickening seen in both maxilla ry sinuses with some dependent fluid. LUNGS: The lungs are grossly clear, there is no concerning parenchymal mass or nodule identified. T here is no pleural effusion or pneumothorax seen. The tracheobronchial tree is patent. MEDIASTINUM: Lack of IV contrast is noted to limit evaluation for mediastinal and especially hilar ad enopathy. There are no definitive greater than 1 cm hilar or mediastinal lymph nodes. No significan t pericardial effusion is seen. Mild cardiomegaly is present. There is prominent coronary artery calc ification and/or stent in the proximal LAD, correlate clinically. OTHER: Simple appearing 1.9 cm thin-walled cyst right hepatic lobe axial image 52 is noted. IMPRESSION: No suspicious findings seen on noncontrast CT to account for patient's left neck and shou lder pain. Possible acute on chronic bilateral maxillary sinus disease, correlate clinically.
[2018-05-26] MEDS: KETOROLAC 30 MG/ML 1 ML VIAL IVP SCH (16:52)
[2018-05-26] MEDS: CYCLOBENZAPRINE 10 MG TAB PO PRN (16:53)
--- NOTE | 2018-05-26 17:26 | CONS ---
CONSULTATION Mr. Gutierrez is a 68-year-old male who presented with symptoms of neck, arm and chest discomfort. He has a known history of coronary artery disease status post stenting at [facility] 3 years ago. Full details of that is not available to me. Recently he has been complaining of neck discomfort radiating to the left arm. He has tried a TENS unit with some improvement. He also started to complain of chest discomfort as well as progressive fatigue and lack of energy and diaphoresis. Because of that, he came into the emergency room. The patient denies any prior history of myocardial infarction or congestive heart failure. He has occasional peripheral edema. No clear PND. No orthopnea. No syncope. He was seen by his primary energy conservation engineer, Dr. Wagner and was being evaluated to undergo a stress test. His coronary risk factors are remarkable for occasional smoking cigars. He has a history of hypertension, hyperlipidemia. He is nondiabetic. MEDICATION: Medications at home include aspirin once a day, amlodipine 5 mg daily, Cozaar 50 mg daily, Flexeril, Uvar, Lipitor 40 mg daily, Flonase, and multivitamin. REVIEW OF SYSTEMS: Respiratory system: He has prior history of asthma on and off. He has some dyspnea on exertion. He has a dry cough. GI system: No recent GI bleeding. No peptic ulcer disease. system: No dysuria or hematuria. Nervous system: No stroke or seizure. PHYSICAL EXAMINATION: He is a 68-year-old male, alert, oriented, in no apparent distress. Blood pressure 146/80 with a heart rate in the 50s. HEAD: Normocephalic. EYES: Sclerae anicteric. Neck: Good upstroke. No bruit. No jugular venous distention. Lungs clear to auscultation. HEART: Regular rate and rhythm S1, S2. No S3. No rub or gallop with a soft systolic murmur. ABDOMEN: Soft, nontender. Positive bowel sounds. No organomegaly. EXTREMITIES: Trace to 1+ edema. Intact distal pulses. LAB DATA: Lab data revealed troponin less than 0.012. BUN and creatinine 13 and 0.84. Potassium 4.6. D-dimer 0.42. Hemoglobin of 15.2. EKG revealed a sinus mechanism. Normal axis and intervals. No acute changes. Chest x-ray shows no acute changes. IMPRESSION: 1. Chest discomfort of unclear etiology, probably noncardiac in etiology in a patient with a history of stenting. 2. Arm discomfort could be related to cervical radiculopathy. 3. History of hypertension. 4. Hyperlipidemia. RECOMMENDATIONS: I would recommend to obtain serial enzymes. If there is no evidence for acute changes, I will proceed with a myocardial perfusion imaging. An echocardiogram with Doppler will be obtained and depending on results of testing, further recommendations will be made. Thank you for this consult. We will follow with you. MMODL / IJN: [id number] /
[2018-05-26] MEDS: ATORVASTATIN 40 MG TAB PO SCH (20:30)
[2018-05-26 22:57] LABS: Cholesterol 121 mg/dL (<200); HDL Cholesterol 26 mg/dL (40-60); LDL Cholesterol,Calculated 71 mg/dL (0-99); Triglycerides 120 mg/dL (<150)
[2018-05-27] MEDS: KETOROLAC 30 MG/ML 1 ML VIAL IVP SCH ×4 (00:36→17:17)
[2018-05-27] MEDS ORDERED: CAFFEINE CITRATE 60 MG/3 ML VIAL IV PRN (07:31)
[2018-05-27] MEDS ORDERED: REGADENOSON 0.4 MG/5 ML SYRINGE IV ONE (07:31)
[2018-05-27] MEDS ORDERED: FLUTICASONE 110 MCG INHALER INHALATION SCH (08:00)
--- NOTE | 2018-05-27 08:00 | PN ---
PROGRESS NOTE Mr. Gutierrez is a 68-year-old male with known history of coronary artery disease who presented with symptoms of chest discomfort, neck discomfort and left arm tingling. His chest and arm tingling are gone. He has continued to have neck discomfort. 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 He is feeling well otherwise. His breathing is stable. He denies any palpitation. He continues to be at this time on aspirin, Lipitor 40 mg daily, losartan 50 mg daily, amlodipine 5 mg daily. PHYSICAL EXAMINATION: Blood pressure 133/70 with the heart rate in the 60s. LUNGS: Clear. HEART: Regular rate and rhythm. S1, S2. No S3. No rub. ABDOMEN: Soft, nontender. EXTREMITIES: No edema. LAB DATA: Lab data revealed troponin less than 0.012. Cholesterol of 120 with an LDL of 71. IMPRESSION: 1. Chest discomfort of unclear etiology in a patient with known history of coronary artery disease. 2. Probable cervical radiculopathy. 3. Hypertension. 4. Hyperlipidemia. RECOMMENDATION: Patient will undergo a myocardial perfusion imaging today. If there is no evidence of inducible ischemia then no further cardiac workup will be needed. MMODL / IJN: [id number] /
[2018-05-27] MEDS ORDERED: OMEGA Q PLUS PO SCH (09:00)
[2018-05-27] MEDS ORDERED: amLODIPine 5 MG TAB PO SCH ×2 (09:00→21:00)
[2018-05-27] MEDS ORDERED: ASPIRIN 325 MG TAB PO SCH (09:00)
[2018-05-27] MEDS: FLUTICASONE 50MCG/SPRAY NASAL 16GM EA NOSTRIL SCH (11:17)
[2018-05-27] MEDS: ASPIRIN 81 MG PO SCH (11:17)
[2018-05-27] MEDS: LOSARTAN 50 MG TAB PO SCH (11:17)
[2018-05-27] MEDS: MULTIVITAMINS, THERA 1 EACH TAB PO SCH ×2 (11:22→11:23)
[2018-05-27] MEDS: CYCLOBENZAPRINE 10 MG TAB PO PRN (11:22)
--- NOTE | 2018-05-27 12:51 | NM ---
EXAMINATION TYPE: NM stress lexiscan cardiolite DATE OF EXAM: 05/27/2018 COMPARISON: NONE HISTORY: Chest pain TECHNIQUE: After the intravenous administration of 9.96 mCi Tc 99m Sestamibi - Cardiolite resting SP ECT images acquired 100 minutes post injection. The patient received 0.4mg Lexiscan, 26 mCi Tc 99m Sestamibi - Stress images obtained 45 minutes post injection FINDINGS: Review of stress and rest SPECT images demonstrates no distinct perfusion abnormality. Gated analysi s shows normal wall motion with an estimated left ventricular ejection fraction of 54 %. IMPRESSION: No scintigraphic evidence for reversible ischemia.
--- NOTE | 2018-05-27 12:58 | ECHOF ---
Referral Reason:cp MEASUREMENTS -------- HEIGHT: 175.3 cm WEIGHT: 127.9 kg BP: 146/80 RVIDd: 3.0 cm (< 3.3) IVSd: 1.3 cm (0.6 - 1.1) LVIDd: 4.9 cm (3.9 - 5.3) LVPWd: 1.3 cm (0.6 - 1.1) IVSs: 1.7 cm LVIDs: 3.4 cm LVPWs: 1.7 cm LAESV Index (A-L): 19.11 ml/m Ao Diam: 3.4 cm (2.0 - 3.7) AV Cusp: 2.3 cm (1.5 - 2.6) LA Diam: 3.9 cm (2.7 - 3.8) EPSS: 0.3 cm MV E Campos: 0.91 m/s MV DecT: 250 ms MV A Campos: 0.65 m/s MV E/A Ratio: 1.41 RAP: 5.00 mmHg RVSP: 29.72 mmHg MV EF SLOPE: 114.27 mm/s (70 - 150) MV EXCURSION: 2.30 cm (> 18.000) FINDINGS -------- Sinus rhythm. This was a technically adequate study. The left ventricular size is normal. There is mild concentric left ventricular hypertrophy. Overa ll left ventricular systolic function is normal with, an EF between 55 - 60 %. The right ventricle is normal in size. Normal LA size by volume 22+/-6 ml/m2. The right atrial size is normal. The aortic valve is trileaflet, and appears structurally normal. No aortic stenosis or regurgitation. The mitral valve leaflets are mildly thickened. [id number] mitral regurgitation is present. Trace tricuspid regurgitation present. Right ventricular systolic pressure is normal at < 35 mmHg. The pulmonic valve was not well visualized. There is no pulmonic regurgitation present. The aortic root size is normal. Normal inferior vena cava with normal inspiratory collapse consistent with estimated right atrial pre ssure of 5 mmHg. There is no pericardial effusion. CONCLUSIONS -------- 1. Sinus rhythm. 2. This was a technically adequate study. 3. The left ventricular size is normal. 4. There is mild concentric left ventricular hypertrophy. 5. Overall left ventricular systolic function is normal with, an EF between 55 - 60 %. 6. Normal LA size by volume 22+/-6 ml/m2. 7. The aortic valve is trileaflet, and appears structurally normal. No aortic stenosis or regurgitati on. 8. The mitral valve leaflets are mildly thickened. 9. [id number] mitral regurgitation is present. 10. Trace tricuspid regurgitation present. 11. Right ventricular systolic pressure is normal at < 35 mmHg. 12. The pulmonic valve was not well visualized. 13. The aortic root size is normal. 14. There is no pericardial effusion. DYNAMIC BALANCER SET UP WORKER: Narinder Birch RDCS
--- NOTE | 2018-05-27 14:00 | EST ---
EXERCISE STRESS AGE: 68 SEX: M HT: 69" WT: 282 PROTOCOL: Lexiscan Cardiolite Stress Test HEART RATE REST: 62 BLOOD PRESSURE REST: 133/85 MAXIMUM HEART RATE ACHIEVED: 77 MAXIMUM BLOOD PRESSURE: 133/85 INDICATIONS: Chest pain. CLINICAL INFORMATION: Baseline rhythm is sinus mechanism rate 62, normal axis and intervals, normal echocardiogram. Baseline blood pressure 133/85 mmHg. Patient received an injection of Lexiscan. Electrocardiographic monitoring revealed no evidence of diagnostic ischemic ST deviation. Cardiolite was injected per protocol. CONCLUSION: 1. Nondiagnostic electrocardiographic stress test. 2. Nuclear images will be reported separately. MMODL / IJN: [id number] /
[2018-05-27] MEDS: methylPREDNISolone SOD SUCCI 40 MG/ML 1 ML VIAL IV SCH (17:17)
[2018-05-27] MEDS: ATORVASTATIN 40 MG TAB PO SCH (20:55)
[2018-05-28] MEDS: KETOROLAC 30 MG/ML 1 ML VIAL IVP SCH ×3 (00:15→11:30)
[2018-05-28] MEDS: methylPREDNISolone SOD SUCCI 40 MG/ML 1 ML VIAL IV SCH ×2 (00:15→07:37)
[2018-05-28] MEDS: CYCLOBENZAPRINE 10 MG TAB PO PRN (07:36)
[2018-05-28] MEDS: FLUTICASONE 50MCG/SPRAY NASAL 16GM EA NOSTRIL SCH (07:36)
[2018-05-28] MEDS: ASPIRIN 81 MG PO SCH (07:37)
[2018-05-28] MEDS: LOSARTAN 50 MG TAB PO SCH (07:37)
[2018-05-28 07:45] VITALS: BP 164/92; PULSE 87; TEMP 98.7
== END 2018-05-28 15:23 | disposition home or self-care (01) ==
LOC: EC 10:37 → 1SOBS 12:17
PROVIDERS: ADMIT Family Medicine; ATTEND Family Medicine
DX: R07.89 Other chest pain (principal); J45.909 Unspecified asthma, uncomplicated; R61 Generalized hyperhidrosis; R53.83 Other fatigue; M54.2 Cervicalgia; R60.0 Localized edema; M79.602 Pain in left arm; R20.2 Paresthesia of skin; I25.10 Atherosclerotic heart disease of native coronary artery without angina pectoris; E78.5 Hyperlipidemia, unspecified; I10 Essential (primary) hypertension; M50.90 Cervical disc disorder, unspecified, unspecified cervical region; F17.290 Nicotine dependence, other tobacco product, uncomplicated; Z95.5 Presence of coronary angioplasty implant and graft; Z79.82 Long term (current) use of aspirin; Z79.899 Other long term (current) drug therapy; Z88.0 Allergy status to penicillin; Z91.040 Latex allergy status
CPT/HCPCS: 96374; 96375; 96376 ×2; 99285; 36415; 93005; 93017; 93306; 85379; 80061; 80053; 83735; 84484; 85025; 85610; 85730; 71046; 70490; 71250; 78452; G0378 ×3; A9500; J2920 ×2; J1885 ×3; J2785

== ENCOUNTER 2021-06-11 21:10 | Inpatient (IN) | payer MEDICARE, OTHER ==
--- NOTE | 2021-06-11 23:43 | ED ---
Chest Pain HPI - General Chief Complaint: Chest Pain Stated Complaint: High BP Time Seen by Provider: 06/11/21 23:37 Source: patient, RN notes reviewed, old records reviewed Mode of arrival: ambulatory Limitations: no limitations - History of Present Illness Initial Comments: This is a 71-year-old male DF for generalized pain including chest pain pain all over. Patient also states his blood pressures been elevated. Patient complains of occasional shortness of breath worse with exertion no travel history or sick contacts no fevers cough or congestion. Patient does have a positive history of heart disease as well as high blood pressure high cholesterol. MD Complaint: chest pain -: hour(s) Onset: during rest, during exertion Pain Location: substernal, left chest Pain Radiation: LUE Severity: moderate Quality: tightness, heaviness Consistency: constant Improves With: nothing Worsens With: exertion Other Symptoms: palpitations Treatments Prior to Arrival: none - Related Data Home Medications Medication Instructions Recorded Confirmed Aspirin EC [Ecotrin Low Dose] 81 mg PO DAILY 10/05/16 06/12/21 [place] Q Plus 1 tab PO DAILY 10/05/16 06/12/21 amLODIPine [Norvasc] 5 mg PO DAILY 10/05/16 06/12/21 Multivitamins, Thera [Multivitamin 1 tab PO DAILY 11/04/16 06/12/21 (formulary)] Fluticasone Nasal [place] [Flonase 1 spray EA NOSTRIL DAILY PRN 05/26/18 06/12/21 Nasal Tram] Losartan [Cozaar] 50 mg PO DAILY 05/26/18 06/12/21 Nitroglycerin Sl Tabs [Nitrostat] 0.4 mg SL Q5M PRN 05/26/18 06/12/21 Fluticasone Propionate [Flovent 2 puff INHALATION RT-BID PRN 06/12/21 06/12/21 Hfa 220 mcg] Rosuvastatin Calcium [Crestor] 5 mg PO DAILY 06/12/21 06/12/21 Previous Rx's Medication Instructions Recorded Ticagrelor [Brilinta] 90 mg PO BID #60 tab 06/13/21 Atorvastatin [Lipitor] 80 mg PO HS 30 Days #30 tab 06/14/21 Metoprolol Tartrate [Lopressor] 25 mg PO BID 30 Days #60 tab 06/14/21 Allergies Allergy/AdvReac Type Severity Reaction Status Date / Time Latex, Natural Rubber Allergy Unknown Verified 06/12/21 07:46 Penicillins Allergy Unknown Verified 06/12/21 07:46 Childhood prednisone Allergy Rash/Hives Verified 06/12/21 07:46 Review of Systems ROS Statement: Those systems with pertinent positive or pertinent negative responses have been documented in the HPI. ROS Other: All systems not noted in ROS Statement are negative. EKG Findings - EKG Comments: EKG Findings:: EKG shows sinus rhythm 75 OR 166 QRS 92 QTC 422 - EKG Results: EKG: WNL (EKG is normal sinus rhythm 62 OR 187 QRS 91 QTC 427) Past Medical History Past Medical History: Coronary Artery Disease (CAD), Chest Pain / Angina, GERD/Reflux, GI Bleed, Hyperlipidemia, Hypertension, Osteoarthritis (OA), Sleep Apnea/CPAP/BIPAP Additional Past Medical History / Comment(s): Pt has had L neck pain past 3 weeks with parasthesia L arm, MARCO with Cpap, esophagitis, gastritis, diverticular dx, past rectal bleed, past low back pain but none since RFA, seasonal allergies. History of Any Multi-Drug Resistant Organisms: None Reported Past Surgical History: Adenoidectomy, Heart Catheterization With Stent, Joint Replacement, Orthopedic Surgery, Tonsillectomy Additional Past Surgical History / Comment(s): 10/26/15 PCI with stent to LAD, total R hip arthroplasty, L knee arthroscopy, EGD, colonoscpy, bilateral cataract removals/lens implants. Past Anesthesia/Blood Transfusion Reactions: No Reported Reaction Date of Last Stent Placement:: 10/26/15 Past Psychological History: No Psychological Hx Reported Smoking Status: Former smoker Past Alcohol Use History: Occasional Past Drug Use History: Marijuana - Past Family History Mother Family Medical History: No Reported History Additional Family Medical History / Comment(s): Mother was healthy and lived to be 91 yrs old. Father Additional Family Medical History / Comment(s): Father had tongue and throat cancer. Brother(s) Family Medical History: Cancer, CVA/TIA Additional Family Medical History / Comment(s): Brother had lung cancer that went to his brain and he has had 2 cvas. General Exam Limitations: no limitations General appearance: alert, in no apparent distress, anxious Head exam: Present: atraumatic, normocephalic, normal inspection Eye exam: Present: normal appearance, PERRL, EOMI. Absent: scleral icterus, conjunctival injection, periorbital swelling ENT exam: Present: normal exam, mucous membranes moist Neck exam: Present: normal inspection. Absent: tenderness, meningismus, lymphadenopathy Respiratory exam: Present: normal lung sounds bilaterally. Absent: respiratory distress, wheezes, rales, rhonchi, stridor Cardiovascular Exam: Present: regular rate, normal rhythm, normal heart sounds. Absent: systolic murmur, diastolic murmur, rubs, gallop, clicks GI/Abdominal exam: Present: soft, normal bowel sounds. Absent: distended, tenderness, guarding, rebound, rigid Extremities exam: Present: normal inspection, full ROM, normal capillary refill. Absent: tenderness, pedal edema, joint swelling, calf tenderness Back exam: Present: normal inspection Neurological exam: Present: alert, oriented X3, CN II-XII intact Psychiatric exam: Present: normal affect, normal mood Skin exam: Present: warm, dry, intact, normal color. Absent: rash Course Vital Signs 06/11/21 06/12/21 21:15 02:27 Temperature 97.7 F Pulse Rate 74 69 Respiratory 18 18 Rate Blood Pressure 181/84 146/79 O2 Sat by Pulse 97 99 Oximetry - Reevaluation(s) Reevaluation #1: 06/12/2021 Medical record is reviewed Patient symptoms are improved here in the ER Patient informed results questions are answered Reevaluation #2: Studies Chest x-rays negative for acute disease Chest Pain MDM - MDM 71 male with hypertension non-ST elevated MS, hypertensive urgency, emergency. Chest pain. Patient will be admitted to cardiology to evaluate and see Critical Care Time Critical Care Time: Yes Total Critical Care Time: 31 Disposition Clinical Impression: Chest pain, Acute non-ST elevation myocardial infarction (NSTEMI) Disposition: ADMITTED IP TO THIS HOSP Condition: Serious Is patient prescribed a controlled substance at d/c from ED?: No
[2021-06-12 00:37] LABS: Basophils % (A) 0 %; Eosinophils # (A) 0.3 k/uL (0-0.7); Eosinophils % (A) 4 %; HCT 45.4 % (39.0-53.0); HGB 15.2 gm/dL (13.0-17.5); Lymphocytes # (A) 1.7 k/uL (1.0-4.8); Lymphocytes % (A) 23 %; MCH 32.1 pg (25.0-35.0); MCHC 33.5 g/dL (31.0-37.0); MCV 95.9 fL (80.0-100.0); Mean Platelet Volume 7.9; Monocytes # (A) 0.6 k/uL (0-1.0); Monocytes % (A) 8 %; Neutrophils # (A) 4.6 k/uL (1.3-7.7); Neutrophils % (A) 62 %; Platelet Count 223 k/uL (150-450); RBC 4.73 m/uL (4.30-5.90); RDW 12.8 % (11.5-15.5); WBC 7.5 k/uL (3.8-10.6)
--- NOTE | 2021-06-12 00:39 | XR ---
EXAMINATION TYPE: XR chest 1V portable DATE OF EXAM: 06/12/2021 COMPARISON: 05/26/2018 HISTORY: Chest pain TECHNIQUE: Single view FINDINGS: Heart is normal. Lungs are clear of infiltrate. Thoracic aorta is atheromatous. There are n o hilar masses. There is no pleural effusion. Bony thorax is intact IMPRESSION: No active cardiopulmonary disease. No change
[2021-06-12 00:46] LABS: Albumin 4.1 g/dL (3.5-5.0); Calcium 9.1 mg/dL (8.4-10.2); Magnesium 1.9 mg/dL (1.6-2.3); Potassium 3.8 mmol/L (3.5-5.1); Total Bilirubin 0.5 mg/dL (0.2-1.3); Total Protein 6.9 g/dL (6.3-8.2)
[2021-06-12 00:51] LABS: INR 0.9 (<1.2); Partial Thromboplastin Time 22.9 sec (22.0-30.0); Prothrombin Time 10.1 sec (9.0-12.0)
[2021-06-12] MEDS ORDERED: HEPARIN SODIUM 1,000 UN/ML (10ML VL) IV ONE ×2 (01:26→11:32)
[2021-06-12] MEDS ORDERED: NITROGLYCERIN SL TABS 0.4 MG TAB SUBLINGUAL PRN ×3 (01:26→19:36)
[2021-06-12] MEDS ORDERED: MORPHINE SULFATE 4 MG/ML SYRINGE IV PRN (01:26)
[2021-06-12] MEDS ORDERED: ASPIRIN 81 MG PO STA (01:26)
[2021-06-12] MEDS: HEPARIN SOD,PORK IN 0.45% NACL 25,000 UNIT in 0.45% NACL 1 250ML.BAG IV SCH (02:20)
[2021-06-12] MEDS: METOPROLOL TARTRATE 25 MG TAB PO SCH ×2 (08:17→20:53)
[2021-06-12] MEDS ORDERED: FLUTICASONE 50MCG/SPRAY NASAL 16GM EA NOSTRIL PRN (08:29)
[2021-06-12] MEDS: ASPIRIN 81 MG PO SCH (09:01)
--- NOTE | 2021-06-12 09:40 | P.CRDCN ---
History of Present Illness Consult date: 06/12/21 History of present illness: HISTORY OF PRESENT ILLNESS: This is a 71-year-old male with a past medical history significant for coronary artery disease with previous stenting to the LAD in 2016, hypertension, hyperlipidemia with statin intolerance, and former nicotine dependence. Patient follows in the office with Dr. Oro. We have been asked to see the patient in consultation for chest pain. Patient examined at the bedside. patient states he began having chest discomfort yesterday. He states he was down his basement working when he began having some discomfort in his legs so he came upstairs and was watching TV. He states he then began having chest pain in the middle of his chest that felt like a sharp pain and also like a heavy pressure. He reports radiation to the left arm. He denies feeling short of breath. He states the pa in has been intermittent since yesterday. The patient reports having chest pain this morning. He has received 3 sublingual nitro. He states each time his pain comes back it is worse than the previous episode. He reports diaphoresis. He denies nausea or vomiting. He is currently on a heparin drip. * EKG reveals sinus mechanism with no signs of acute ischemia * Chest xray no active cardiopulmonary disease. * Laboratory data: W BC 7.5. Hemoglobin 15.2. Platelet count 223. Sodium 135. Potassium 3.8. BUN 14. Creatinine 1.01. Troponin 0.161. 0.191. ProBNP 71. * Current home cardiac medications include Norvasc 5 mg daily, Crestor 5 mg daily, * Most recent echocardiogram obtained in May 2021 * Patient underwent Lexiscan stress test in December 2019 which was negative for ischemia * Patient underwent cardiac catheterization in October 2015 to [facility] with stenting to the LAD REVIEW OF SYSTEMS: At the time of my exam: CONSTITUTIONAL: Denies fever or chills. HEENT: Denies blurred vision, vision changes, or eye pain. Denies hemoptysis CARDIOVASCULAR: + chest pain. Denies orthopnea. Denies PND. Denies palpitations RESPIRATORY: Denies shortness of breath. GASTROINTESTINAL: Denies abdominal pain. Denies nausea or vomiting. HEMATOLOGIC: Denies bleeding disorders. GENITOURINARY: Denies any blood in urine. SKIN: Denies pruitis. Denies rash. PHYSICAL EXAM: VITAL SIGNS: Reviewed. GENERAL: Well-developed in no acute distress. HEENT: Head is normocephalic. Pupils are equal, round. Sclerae anicteric. Mucous membranes of the mouth are moist. Neck supple. No JVD or thyromegaly LUNGS: Respirations even and unlabored. Lungs essentially clear to auscultation bilaterally. HEART: Regular rate and rhythm. S1 and S2 heard. ABDOMEN: Soft. Nondistended. Nontender. EXTREMITIES: Normal range of motion. No clubbing or cyanosis. Peripheral pulses intact. No lower extremity edema NEUROLOGIC: Awake and alert. Oriented x 3. ASSESSMENT: Chest pain Non-STEMI Coronary artery disease with previous PCI to LAD Hypertension Hyperlipidemia with history of statin myopathy tolerating low-dose Crestor an ou tpatient basis Obstructive sleep apnea with CPAP use Former nicotine dependence PLAN: Obtain 2D echo to assess cardiac structure and function Resume home cardiac medications Continue IV heparin Dr. Cross notified of patient condition including active chest pain this morning with administration of 3 sublingual nitro. Anticipate cardiac cath today. Await evaluation by Dr. Cross Nurse practitioner note has been reviewed by physician. Signing provider agrees with the documented findings, assessment, and plan of care. Past Medical History Past Medical History: Coronary Artery Disease (CAD), Chest Pain / Angina, GERD/Reflux, GI Bleed, Hyperlipidemia, Hypertension, Osteoarthritis (OA), Sleep Apnea/CPAP/BIPAP Additional Past Medical History / Comment(s): Pt has had L neck pain past 3 weeks with parasthesia L arm, MARCO with Cpap, esophagitis, gastritis, diverticular dx, past rectal bleed, past low back pain but none since RFA, seasonal allergies. History of Any Multi-Drug Resistant Organisms: None Reported Past Surgical History: Adenoidectomy, Heart Catheterization With Stent, Joint Replacement, Orthopedic Surgery, Tonsillectomy Additional Past Surgical History / Comment(s): 10/26/15 PCI with stent to LAD, total R hip arthroplasty, L knee arthroscopy, EGD, colonoscpy, bilateral cataract removals/lens implants. Past Anesthesia/Blood Transfusion Reactions: No Reported Reaction Date of Last Stent Placement:: 10/26/15 Past Psychological History: No Psychological Hx Reported Additional Psychological History / Comment(s): Pt is retired. He resides with his spouse and their omari in laws brother lives with them and is helpful. Pt uses no assistive devices. He drives. Smoking Status: Former smoker Past Alcohol Use History: Occasional Additional Past Alcohol Use History / Comment(s): Pt states he stopped smoking cigars 2 years ago Past Drug Use History: Marijuana Additional Drug Use History / Comment(s): Pt occasionally smokes marijuana - Past Family History Mother Family Medical History: No Reported History Additional Family Medical History / Comment(s): Mother was healthy and lived to be 91 yrs old. Father Additional Family Medical History / Comment(s): Father had tongue and throat cancer. Brother(s) Family Medical History: Cancer, CVA/TIA Additional Family Medical History / Comment(s): Brother had lung cancer that went to his brain and he has had 2 cvas. Medications and Allergies Home Medications Medication Instructions Recorded Confirmed Type Aspirin EC [Ecotrin Low Dose] 81 mg PO DAILY 10/05/16 06/12/21 History [place] Q Plus 1 tab PO DAILY 10/05/16 06/12/21 History amLODIPine [Norvasc] 5 mg PO DAILY 10/05/16 06/12/21 History Multivitamins, Thera [Multivitamin 1 tab PO DAILY 11/04/16 06/12/21 History (formulary)] Fluticasone Nasal [place] [Flonase 1 spray EA NOSTRIL DAILY PRN 05/26/18 06/12/21 History Nasal [place]] Losartan [Cozaar] 50 mg PO DAILY 05/26/18 06/12/21 History Nitroglycerin Sl Tabs [Nitrostat] 0.4 mg SL Q5M PRN 05/26/18 06/12/21 History Fluticasone Propionate [Flovent 2 puff INHALATION RT-BID PRN 06/12/21 06/12/21 History Hfa 220 mcg] Rosuvastatin Calcium [Crestor] 5 mg PO DAILY 06/12/21 06/12/21 History Allergies Allergy/AdvReac Type Severity Reaction Status Date / Time Latex, Natural Rubber Allergy Unknown Verified 06/12/21 07:46 Penicillins Allergy Unknown Verified 06/12/21 07:46 Childhood prednisone Allergy Rash/Hives Verified 06/12/21 07:46 Physical Exam Vitals: Vital Signs Temp Pulse Pulse Resp BP BP Pulse Ox 06/12/21 08:00 97.4 F L 65 17 134/81 98 06/12/21 03:00 98.1 F 61 18 135/72 98 03/30/22 02:27 69 18 146/79 99 06/11/21 21:15 97.7 F 74 18 181/84 97 Intake and Output 06/11/21 06/12/21 06/12/21 22:59 06:59 14:59 Other: Voiding Method Toilet # Voids 1 Weight 126.099 kg 126.099 kg Results 06/12/21 00:01 06/12/21 00:01 Cardiac Enzymes 06/12/21 06/12/21 06/12/21 Range/Units 00:01 00:01 04:00 AST 47 (17-59) U/L Troponin I 0.161 H* 0.191 H* (0.000-0.034) ng/mL Coagulation 06/12/21 Range/Units 00:01 PT 10.1 (9.0-12.0) sec APTT 22.9 (22.0-30.0) sec CBC 06/12/21 Range/Units 00:01 WBC 7.5 (3.8-10.6) k/uL RBC 4.73 (4.30-5.90) m/uL Hgb 15.2 (13.0-17.5) gm/dL Hct 45.4 (39.0-53.0) % Plt Count 223 (150-450) k/uL Comprehensive Metabolic Panel 06/12/21 Range/Units 00:01 Sodium 135 L (137-145) mmol/L Potassium 3.8 (3.5-5.1) mmol/L Chloride 103 (98-107) mmol/L Carbon Dioxide 26 (22-30) mmol/L BUN 14 (9-20) mg/dL Creatinine 1.01 (0.66-1.25) mg/dL Glucose 147 H (74-99) mg/dL Calcium 9.1 (8.4-10.2) mg/dL AST 47 (17-59) U/L ALT 63 H (4-49) U/L Alkaline Phosphatase 56 (38-126) U/L Total Protein 6.9 (6.3-8.2) g/dL Albumin 4.1 (3.5-5.0) g/dL Current Medications Generic Name Dose Route Start Last Admin Trade Name Freq PRN Reason Stop Dose Admin Amlodipine Besylate 5 mg 06/12/21 09:00 Amlodipine 5 Mg Tab PO DAILY [facility] Aspirin 325 mg 06/13/21 09:00 Aspirin 325 Mg Tab PO DAILY [facility] Aspirin 81 mg 06/12/21 09:00 06/12/21 09:01 Aspirin 81 Mg PO Not Given DAILY [facility] Fluticasone Propionate 1 spray 06/12/21 08:29 Fluticasone 50mcg/[place] Nasal 16gm EA NOSTRIL DAILY PRN Congestion Heparin Sodium/Sodium Chloride 250 mls @ 10 mls/hr 06/12/21 01:45 06/12/21 02:20 25,000 unit/ Sodium Chloride IV 7.93 units/kg/hr .Q24H STEFANO 10 mls/hr Administration Protocol 7.93 UNITS/KG/HR Losartan Potassium 50 mg 06/12/21 09:00 Losartan 50 Mg Tab PO DAILY [facility] Metoprolol Tartrate 25 mg 06/12/21 09:00 06/12/21 08:17 Metoprolol Tartrate 25 Mg Tab PO 25 mg BID [facility] Administration Morphine Sulfate 4 mg 06/12/21 01:26 06/12/21 08:17 Morphine Sulfate 4 Mg/Ml Syringe IV 4 mg Q4HR PRN Administration Chest Pain Nitroglycerin 0.4 mg 06/12/21 01:26 06/12/21 08:17 Nitroglycerin Sl Tabs 0.4 Mg Tab SUBLINGUAL 0.4 mg Q5M PRN Administration Chest Pain Intake and Output 06/11/21 06/12/21 06/12/21 22:59 06:59 14:59 Other: Voiding Method Toilet # Voids 1 Weight 126.099 kg 126.099 kg 06/12/21 00:01 06/12/21 00:01
[2021-06-12] MEDS ORDERED: ATORVASTATIN 80 MG TAB PO STA (10:04)
[2021-06-12] MEDS ORDERED: ASPIRIN 325 MG TAB PO STA (10:04)
[2021-06-12] MEDS ORDERED: ALPRAZolam 0.5 MG TAB PO PRN (10:04)
[2021-06-12] MEDS ORDERED: ALPRAZolam 0.25 MG TAB PO PRN (10:04)
[2021-06-12] MEDS ORDERED: SODIUM CHLORIDE 0.9% 1,000 ML IV ONE (10:27)
[2021-06-12] MEDS ORDERED: fentaNYL (PF) 50 MCG/ML 2 ML AMP IV ONE (10:43)
[2021-06-12] MEDS ORDERED: MIDAZOLAM 2 MG/2 ML VIAL IV ONE (10:43)
[2021-06-12] MEDS ORDERED: LIDOCAINE 1% INJ 10MG/ML (20 ML MDV) SQ ONE (10:45)
[2021-06-12] MEDS ORDERED: VERAPAMIL SYRINGE (5 MG/10 ML) INTRAARTER ONE (10:49)
[2021-06-12] MEDS: HEPARIN SODIUM 1,000 UN/ML (10ML VL) IV ONE ×3 (10:54→11:19)
[2021-06-12] MEDS ORDERED: TICAGRELOR 90 MG TAB PO ONE (11:10)
--- NOTE | 2021-06-12 11:21 | P.HPIM ---
History of Present Illness This is a pleasant 71 years old male with past medical history of Coronary Artery Disease status post stent, GERD/Reflux, GI Bleed, Hyperlipidemia, Hypertension, Osteoarthritis (OA), Sleep Apnea/CPAP/BIPAP, esophagitis, gastritis, diverticular dx, past rectal bleed Presents because of pain all over and her blood pressure at however patient with chest pain or abdominal pain. He has some left pain in the shoulder area without history of trauma or restriction of movement. Also he was hypertensive at home 190/120. He has some little chest discomfort. However his left arm pain rated as 6-7/10, it was 10/10 on admission. He was started on heparin drip in the emergency room He denies dyspnea or GI or urinary symptoms. No headache or dizziness or weakness. He stopped smoking about 2 years ago, he used to smoke cigars every other days. He denies alcohol or illicit drugs Hemodynamically he is a stable Labs including CBC, INR, BMP and liver enzymes are unremarkable. Troponin elevated 0.16 EKG showing sinus rhythm at [address]-T changes Chest x-ray: No acute process. Patient was started on heparin drip on admission as well as aspirin Review of Systems Review of systems CONSTITUTIONAL: No fever, no malaise, no fatigue. HEENT: No recent visual problems or hearing problems. Denied any sore throat. CARDIOVASCULAR: No orthopnea, PND, no palpitations, no syncope. PULMONARY: No shortness of breath, no cough, no hemoptysis. GASTROINTESTINAL: No diarrhea, no nausea, no vomiting, no abdominal pain. Normoactive bowel sounds. NEUROLOGICAL: No headaches, no weakness, no numbness. HEMATOLOGICAL: Denies any bleeding or petechiae. GENITOURINARY: Denies any burning micturition, frequency, or urgency. MUSCULOSKELETAL/RHEUMATOLOGICAL: Denies any joint pain, swelling, or any muscle pain. ENDOCRINE: Denies any polyuria or polydipsia. Past Medical History Past Medical History: Coronary Artery Disease (CAD), Chest Pain / Angina, GERD/Reflux, GI Bleed, Hyperlipidemia, Hypertension, Osteoarthritis (OA), Sleep Apnea/CPAP/BIPAP Additional Past Medical History / Comment(s): Pt has had L neck pain past 3 we eks with parasthesia L arm, MARCO with Cpap, esophagitis, gastritis, diverticular dx, past rectal bleed, past low back pain but none since RFA, seasonal allergies. History of Any Multi-Drug Resistant Organisms: None Reported Past Surgical History: Adenoidectomy, Heart Catheterization With Stent, Joint Replacement, Orthopedic Surgery, Tonsillectomy Additional Past Surgical History / Comment(s): 10/26/15 PCI with stent to LAD, total R hip arthroplasty, L knee arthroscopy, EGD, colonoscpy, bilateral cataract removals/lens implants. Past Anesthesia/Blood Transfusion Reactions: No Reported Reaction Date of Last Stent Placement:: 10/26/15 Past Psychological History: No Psychological Hx Reported Additional Psychological History / Comment(s): Pt is retired. He resides with his spouse and their omari in laws brother lives with them and is helpful. Pt uses no assistive devices. He drives. Smoking Status: Former smoker Past Alcohol Use History: Occasional Additional Past Alcohol Use History / Comment(s): Pt states he stopped smoking cigars 2 years ago Past Drug Use History: Marijuana Additional Drug Use History / Comment(s): Pt occasionally smokes marijuana - Past Family History Mother Family Medical History: No Reported History Additional Family Medical History / Comment(s): Mother was healthy and lived to be 91 yrs old. Father Additional Family Medical History / Comment(s): Father had tongue and throat cancer. Brother(s) Family Medical History: Cancer, CVA/TIA Additional Family Medical History / Comment(s): Brother had lung cancer that went to his brain and he has had 2 cvas. Medications and Allergies Home Medications Medication Instructions Recorded Confirmed Type Aspirin EC [Ecotrin Low Dose] 81 mg PO DAILY 10/05/16 06/12/21 History [place] Q Plus 1 tab PO DAILY 10/05/16 06/12/21 History amLODIPine [Norvasc] 5 mg PO DAILY 10/05/16 06/12/21 History Multivitamins, Thera [Multivitamin 1 tab PO DAILY 11/04/16 06/12/21 History (formulary)] Fluticasone Nasal [place] [Flonase 1 spray EA NOSTRIL DAILY PRN 05/26/18 06/12/21 History Nasal [place]] Losartan [Cozaar] 50 mg PO DAILY 05/26/18 06/12/21 History Nitroglycerin Sl Tabs [Nitrostat] 0.4 mg SL Q5M PRN 05/26/18 06/12/21 History Fluticasone Propionate [Flovent 2 puff INHALATION RT-BID PRN 06/12/21 06/12/21 History Hfa 220 mcg] Rosuvastatin Calcium [Crestor] 5 mg PO DAILY 06/12/21 06/12/21 History Allergies Allergy/AdvReac Type Severity Reaction Status Date / Time Latex, Natural Rubber Allergy Unknown Verified 06/12/21 07:46 Penicillins Allergy Unknown Verified 06/12/21 07:46 Childhood prednisone Allergy Rash/Hives Verified 06/12/21 07:46 Physical Exam Vitals: Vital Signs Temp Pulse Pulse Resp BP BP Pulse Ox 06/12/21 03:00 98.1 F 61 18 135/72 98 06/12/21 02:27 69 18 146/79 99 06/11/21 21:15 97.7 F 74 18 181/84 97 Intake and Output 06/11/21 06/12/21 06/12/21 22:59 06:59 14:59 Other: Voiding Method Toilet # Voids 1 Weight 126.099 kg 126.099 kg GENERAL: The patient is alert and oriented x3, not in any acute distress. Well developed, well nourished. HEENT: Pupils are round and equally reacting to light. EOMI. No scleral icterus. No conjunctival pallor. Normocephalic, atraumatic. No pharyngeal erythema. No thyromegaly. CARDIOVASCULAR: S1 and S2 present. No murmurs, rubs, or gallops. PULMONARY: Chest is clear to auscultation, no wheezing or crackles. ABDOMEN: Soft, nontender, nondistended, normoactive bowel sounds. No palpable organomegaly. MUSCULOSKELETAL: No joint swelling or deformity. EXTREMITIES: No cyanosis, clubbing, or pedal edema. NEUROLOGICAL: Gross neurological examination did not reveal any focal deficits. SKIN: No rashes. no petechiae. Results CBC & Chem 7: 06/12/21 00:01 06/12/21 00:01 Labs: Abnormal Lab Results - Last 24 Hours (Table) 06/12/21 06/12/21 06/12/21 Range/Units 00:01 00:01 04:00 Sodium 135 L (137-145) mmol/L Glucose 147 H (74-99) mg/dL ALT 63 H (4-49) U/L Troponin I 0.161 H* 0.191 H* (0.000-0.034) ng/mL Thrombosis Risk Factor Assmnt - Choose All That Apply Each Factor Represents 1 point: Obesity (BMI >25) Each Risk Factor Represents 2 Points: Age 61-74 years Thrombosis Risk Factor Assessment Total Risk Factor Score: 3 Thrombosis Risk Factor Assessment Level: Moderate Risk Assessment and Plan Assessment: non-STEMI with elevated troponin History of coronary artery disease status post stent placement Hypertension Hyperlipidemia History of osteoarthritis History of sleep apnea on CPAP/BiPAP History of esophagitis History of gastritis History of diverticular disease and rectal bleeding Morbid obesity with BMI of 41.1 Plan: this is a pleasant 71 years old male who presents with non-STEMI Continue with heparin drip, continue with aspirin and metoprolol Cardiology consult Plan for cardiac cath today Labs and medication were reviewed.. Continue same treatment. Continue with symptomatic treatment. Resume home medication. Monitor lytes and vitals. DVT and GI prophylaxis. Further recommendationsas per clinical course of the patient DVT prophylaxis: heparin GI Prophylaxis: Pepcid Prognosis is guarded
[2021-06-12] MEDS: NITROGLYCERIN 1000MCG/10ML SYRINGE INTRACORON ONE ×3 (11:22→11:34)
[2021-06-12] MEDS ORDERED: IOPAMIDOL-370 125ML BTL INJ ONE (11:28)
[2021-06-12] MEDS ORDERED: IOPAMIDOL-370 100ML BTL INJ ONE (11:44)
[2021-06-12] MEDS: amLODIPine 5 MG TAB PO SCH (12:12)
[2021-06-12] MEDS: LOSARTAN 50 MG TAB PO SCH (12:13)
[2021-06-12] MEDS ORDERED: RX INFO: IV CONTRAST WAS GIVEN 1 EACH MISC MISCELLANE PRN (19:36)
[2021-06-12] MEDS ORDERED: ZOLPIDEM 5 MG TAB PO PRN (19:36)
[2021-06-12] MEDS ORDERED: MAG HYDROX/AL HYDROX/SIMETH 30 ML CUP PO PRN (19:36)
[2021-06-12] MEDS ORDERED: ATROPINE SULFATE 0.1 MG/ML 10ML SYRINGE IV PRN (19:36)
--- NOTE | 2021-06-12 20:01 | ECHOF ---
Referral Reason:lv function MEASUREMENTS -------- HEIGHT: 175.3 cm WEIGHT: 126.1 kg BP: RVIDd: 3.2 cm (< 3.3) IVSd: 1.2 cm (0.6 - 1.1) LVIDd: 5.3 cm (3.9 - 5.3) LVPWd: 1.3 cm (0.6 - 1.1) IVSs: 1.4 cm LVIDs: 3.5 cm LVPWs: 1.7 cm LA Diam: 4.4 cm (2.7 - 3.8) LAESV Index (A-L): 36.97 ml/m Ao Diam: 3.1 cm (2.0 - 3.7) AV Cusp: 2.3 cm (1.5 - 2.6) LA Diam: 4.4 cm (2.7 - 3.8) MV EXCURSION: 21.757 mm (> 18.000) MV EF SLOPE: 106 mm/s (70 - 150) EPSS: 0.3 cm MV E Campos: 0.66 m/s MV DecT: 218 ms MV A Campos: 0.50 m/s MV E/A Ratio: 1.31 RAP: 5.00 mmHg RVSP: 17.66 mmHg FINDINGS -------- Sinus rhythm. This was a technically adequate study. The left ventricular size is normal. There is mild concentric left ventricular hypertrophy. Overa ll left ventricular systolic function is mildly impaired with, an EF between 45 - 50 %. Basal infer oseptal LV wall motion is hypokinetic. The right ventricle is normal in size. LA is moderately dilated 34-39 ml/m2 The right atrial size is normal. There is mild aortic valve sclerosis. There is no evidence of aortic regurgitation. Moderate mitral regurgitation is present. Mild tricuspid regurgitation present. Right ventricular systolic pressure is normal at < 35 mmHg. There is no pulmonic regurgitation present. There is no pericardial effusion. CONCLUSIONS -------- 1. The left ventricular size is normal. 2. There is mild concentric left ventricular hypertrophy. 3. Overall left ventricular systolic function is mildly impaired with, an EF between 45 - 50 %. 4. Basal inferoseptal LV wall motion is hypokinetic. 5. The right ventricle is normal in size. 6. LA is moderately dilated 34-39 ml/m2 7. The right atrial size is normal. 8. There is mild aortic valve sclerosis. 9. Moderate mitral regurgitation is present. 10. Mild tricuspid regurgitation present. 11. There is no pericardial effusion. MUSIC VIDEO DIRECTOR: Nely Machado RDCS
[2021-06-12] MEDS ORDERED: ACETAMINOPHEN TAB 325 MG TAB PO PRN (20:13)
[2021-06-12] MEDS: ATORVASTATIN 80 MG TAB PO SCH (20:53)
[2021-06-12] MEDS: TICAGRELOR 90 MG TAB PO SCH (20:53)
[2021-06-12] MEDS: SODIUM CHLORIDE 0.9% 1,000 ML in EMPTY BAG 1 BAG IV SCH (20:54)
--- NOTE | 2021-06-12 23:11 | P.PRCINT ---
Percutaneous Coronary Int. - Percutaneous Coronary Intervention Percutaneous Coronary Intervention: PROCEDURES PERFORMED: Left heart catheterization, bilateral coronary angiography, PCI distal RCA into the PDA with a 3.25 x 15mm Xience TRAV, post dilated with a 3.5 NC balloon, Penumbra aspiration thrombectomy INDICATION: NSTEMI HISTORY: Patient is a pleasant 71-year-old male with history of prior PCI proximal LAD who has been having off and on chest pain over the last day and was found to have NSTEMI. Therefore [facility] was recommended. CONSENT:I have discussed the risks, benefits and alternative therapies for the above-mentioned procedure and for both sedation/analgesia as well as necessary blood product administration, if indicated, as they pertain to this patient. The patient has indicated understanding and acceptance of the risks and procedures discussed. PROCEDURE: After the risks, benefits and alternatives of the above mentioned procedure explained in detail with the patient, informed consent was obtained. Patient was taken to the catheterization lab and prepped and draped in usual fashion. 1% lidocaine was used to anesthetize the right radial artery. A 6- Azerbaijani sheath was placed in the right radial artery using modified Seldinger technique. There was some tortuosity of the right subclavian/ innominate requiring manipulation with a wire. Left coronary angiography was performed with a 5-Azerbaijani FL 3.5 catheter and right coronary angiography was performed with a 6-Azerbaijani AR2 catheter in various views. A 5-Azerbaijani FR5 catheter was inserted into the left ventricle and pressure measurements were obtained. The decision was made to perform PCI of RCA. Heparin was given. A 6Fr AL 1 g uide catheter was used to engage the RCA. A 0.014 BMW wire was advanced into the distal PDA. Due to heavy thrombus burden, a Penumbra aspiration catheter was advanced and aspiration thrombectomy was performed. Predilation was performed with a 2.5 x 12 mm balloon. Next a 3.25 x 15 mm Xience TRAV was advanced and deployed in the distal RCA extending into the proximal PDA. The stent were post dilated with a 3.5 NC balloon. Preintervention there was 99% stenosis and JANIA 3 flow and postintervention there was JANIA 3 flow with 0% stenosis. The right radial sheath was removed and a TR band was placed with hemostasis achieved. The patient tolerated the procedure well. Patient was transported back to the post catheterization holding area in stable condition. Conscious Sedation: Patient was monitored under the direct supervision of vision of myself for conscious sedation using Versed and fentanyl for a total duration of 58 minutes HEMODYNAMICS: Aorta: 144/82 LV: 141/12, LVEDP 30 SELECTIVE CORONARY ARTERIOGRAPHY: LEFT MAIN: The left main is a large caliber vessel which bifurcates into the LAD and circumflex. There is no significant stenosis. LEFT ANTERIOR DESCENDING CORONARY ARTERY: LAD is a moderate to large caliber vessel which wraps around to the apex. There is a proximal LAD stent which is patent with mild 10-20% instent stenosis and otherwise is normal. LEFT CIRCUMFLEX CORONARY ARTERY: Left circumflex is a large caliber vessel with no significant stenosis. RIGHT CORONARY ARTERY: The right coronary artery is a large caliber vessel which gives off a PDA and PLV branch and is the dominant vessel. There is a distal RCA 99% stenosis just proximal to the PDA and PLV bifurcation. Otherwise there are mild luminal irregularities. FINAL IMPRESSION: 1. CAD as described above including patent proximal LAD stent with only 10-20% instent stenosis as well as 99% distal RCA stenosis. 2. Status post successful PCI distal RCA into the PDA with a 3.25 x 15mm Xience TRAV, post dilated with a 3.5 NC balloon 3. Elevated left sided filling pressures PLAN: 1. Aggressive risk factor modification per most recent ACC/AHA guidelines. 2. Continue dual antiplatelets for 12 months with aspirin and Brillinta.
[2021-06-13] MEDS: SODIUM CHLORIDE 0.9% 1,000 ML in EMPTY BAG 1 BAG IV SCH ×3 (03:49→10:24)
[2021-06-13] MEDS: HEPARIN SOD,PORK IN 0.45% NACL 25,000 UNIT in 0.45% NACL 1 250ML.BAG IV SCH (03:49)
[2021-06-13] MEDS ORDERED: HEPARIN SODIUM,PORCINE 2,500 UNIT in SODIUM CHLORIDE 0.9% 250 ML IRRIGATION PRN (07:00)
[2021-06-13] MEDS ORDERED: HEPARIN SODIUM,PORCINE 10,000 UNIT in SODIUM CHLORIDE 0.9% 1,000 ML IRRIGATION PRN (07:00)
[2021-06-13] MEDS: amLODIPine 5 MG TAB PO SCH (08:10)
[2021-06-13] MEDS: METOPROLOL TARTRATE 25 MG TAB PO SCH ×2 (08:10→20:25)
[2021-06-13] MEDS: ASPIRIN 81 MG PO SCH (08:10)
[2021-06-13] MEDS: LOSARTAN 50 MG TAB PO SCH (08:10)
[2021-06-13] MEDS: TICAGRELOR 90 MG TAB PO SCH ×2 (08:10→20:26)
[2021-06-13] MEDS ORDERED: ASPIRIN 325 MG TAB PO SCH (09:00)
[2021-06-13] MEDS: FUROSEMIDE 10 MG/ML 4 ML VIAL IV SCH (09:30)
[2021-06-13 10:09] LABS: African American GFR (CKD) 84 (>60 ml/min/1.73 sqM); Anion Gap 8 mmol/L; Blood Urea Nitrogen 11 mg/dL (9-20); Calcium 8.8 mg/dL (8.4-10.2); Carbon Dioxide 25 mmol/L (22-30); Chloride 103 mmol/L (98-107); Glucose 141 mg/dL (74-99); Non-African American GFR(CKD) 73 (>60 ml/min/1.73 sqM); Potassium 4.1 mmol/L (3.5-5.1); Sodium 136 mmol/L (137-145)
[2021-06-13 10:41] VITALS: BMI 41.0
--- NOTE | 2021-06-13 13:44 | P.PN ---
Subjective Progress Note Date: 06/13/21 HISTORY OF PRESENT ILLNESS: This is a 71-year-old male with a past medical history significant for coronary artery disease with previous stenting to the LAD in 2016, hypertension, hy perlipidemia with statin intolerance, and former nicotine dependence. Patient follows in the office with Dr. Oro. We have been asked to see the patient in consultation for chest pain. Patient examined at the bedside. patient states he began having chest discomfort yesterday. He states he was down his basement working when he began having some discomfort in his legs so he came upstairs and was watching TV. He states he then began having chest pain in the middle of his chest that felt like a sharp pain and also like a heavy pressure. He reports radiation to the left arm. He denies feeling short of breath. He states the pain has been intermittent since yesterday. The patient reports having chest pain this morning. He has received 3 sublingual nitro. He states each time his pain comes back it is worse than the previous episode. He reports diaphoresis. He denies nausea or vomiting. He is currently on a heparin drip. * EKG reveals sinus mechanism with no signs of acute ischemia * Chest xray no active cardiopulmonary disease. * Laboratory data: W BC 7.5. Hemoglobin 15.2. Platelet count 223. Sodium 135. Potassium 3.8. BUN 14. Creatinine 1.01. Troponin 0.161. 0.191. ProBNP 71. * Current home cardiac medications include Norvasc 5 mg daily, Crestor 5 mg daily, * Most recent echocardiogram obtained in May 2021 * Patient underwent Lexiscan stress test in December 2019 which was negative for ischemia * Patient underwent cardiac catheterization in October 2015 to [facility] with stenting to the LAD 06/13/2021 Patient is status post cardiac catheterization revealing patent proximal LAD stent with only 10-20% in-stent stenosis as well as 99% distal RCA stenosis. Patient underwent stenting to the distal RCA. Patient was also found to have el evated left-sided filling pressures. He was started on IV Lasix. Echocardiogram completed revealing ejection fraction 45-50%, moderate mitral regurgitation, and mild tricuspid regurgitation. PHYSICAL EXAM: VITAL SIGNS: Reviewed. GENERAL: Well-developed in no acute distress. HEENT: Head is normocephalic. Pupils are equal, round. Sclerae anicteric. Mucous membranes of the mouth are moist. Neck supple. No JVD or thyromegaly LUNGS: Respirations even and unlabored. Lungs essentially clear to auscultation bilaterally. HEART: Regular rate and rhythm. S1 and S2 heard. ABDOMEN: Soft. Nondistended. Nontender. EXTREMITIES: Normal range of motion. No clubbing or cyanosis. Peripheral pulses intact. No lower extremity edema NEUROLOGIC: Awake and alert. Oriented x 3. ASSESSMENT: Chest pain Non-STEMI status post cardiac catheterization with PCI to the RCA Coronary artery disease with previous PCI to LAD Hypertension Hyperlipidemia with history of statin myopathy tolerating low-dose Crestor an outpatient basis Obstructive sleep apnea with CPAP use Former nicotine dependence PLAN: Continue current cardiac medications Continue dual antiplatelet therapy with aspirin and Brilinta Continue IV Lasix Possible discharge home tomorrow Further recommendations pending patient's course Nurse practitioner note has been reviewed by physician. Signing provider agrees with the documented findings, assessment, and plan of care. Objective - Vital Signs Vital signs: Vital Signs Temp 98.0 F 06/13/21 07:38 Pulse 74 06/13/21 11:56 Resp 20 06/13/21 11:56 BP 109/70 06/13/21 11:56 Pulse Ox 98 06/13/21 11:56 Intake & Output 06/12/21 06/13/21 06/13/21 18:59 06:59 18:59 Intake Total 380 118 Balance 380 118 Weight 126.099 kg Intake: IV 200 Oral 180 118 Other: Voiding Method Toilet Toilet # Voids 2 2 - Labs CBC & Chem 7: 06/12/21 00:01 06/13/21 08:50 Labs: Abnormal Lab Results - Last 24 Hours (Table) 06/13/21 Range/Units 08:50 Sodium 136 L (137-145) mmol/L Glucose 141 H (74-99) mg/dL
[2021-06-13 15:26] LABS: LDL Cholesterol,Calculated 72.4 mg/dL (0.0-131.0)
--- NOTE | 2021-06-13 18:57 | P.PN ---
Subjective This is a pleasant 71 years old male with past medical history of Coronary Artery Disease status post stent, GERD/Reflux, GI Bleed, Hyperlipidemia, Hypertension, Osteoarthritis (OA), Sleep Apnea/CPAP/BIPAP, esophagitis, gastritis, diverticular dx, past rectal bleed Presents because of pain all over and her blood pressure at however patient with chest pain or abdominal pain. He has some left pain in the shoulder area without history of trauma or restriction of movement. Also he was hypertensive at home 190/120. He has some little chest discomfort. However his left arm pain rated as 6-7/10, it was 10/10 on admission. He was started on heparin drip in the emergency room He denies dyspnea or GI or urinary symptoms. No headache or dizziness or weakness. He stopped smoking about 2 years ago, he used to smoke cigars every other days. He denies alcohol or illicit drugs Hemodynamically he is a stable Labs including CBC, INR, BMP and liver enzymes are unremarkable. Troponin elevated 0.16 EKG showing sinus rhythm at [address]-T changes Chest x-ray: No acute process. Patient was started on heparin drip on admission as well as aspirin 06/13/2021 Patient status post cardiac cath and PCI to the distal RCA while the LAD stent is patent. Patient comes to the hospital for further monitoring. IV Lasix 40 mg daily added. Also patient is on aspirin and brilintta , metoprolol and losartan Possible discharge in 24 hours once good by cardiology team Objective - Vital Signs Vital signs: Vital Signs Temp 98.0 F 06/13/21 07:38 Pulse 83 06/13/21 08:00 Resp 18 06/13/21 07:38 BP 127/77 06/13/21 07:38 Pulse Ox 97 06/13/21 07:38 Intake & Output 06/12/21 06/13/21 06/13/21 18:59 06:59 18:59 Intake Total 380 118 Balance 380 118 Intake: IV 200 Oral 180 118 Other: Voiding Method Toilet Toilet # Voids 2 2 - Exam GENERAL: The patient is alert and oriented x3, not in any acute distress. Well developed, well nourished. HEENT: Pupils are round and equally reacting to light. EOMI. No scleral icterus. No conjunctival pallor. Normocephalic, atraumatic. No pharyngeal erythema. No thyromegaly. CARDIOVASCULAR: S1 and S2 present. No murmurs, rubs, or gallops. PULMONARY: Chest is clear to auscultation, no wheezing or crackles. ABDOMEN: Soft, nontender, nondistended, normoactive bowel sounds. No palpable organomegaly. MUSCULOSKELETAL: No joint swelling or deformity. EXTREMITIES: No cyanosis, clubbing, or pedal edema. NEUROLOGICAL: Gross neurological examination did not reveal any focal deficits. SKIN: No rashes. no petechiae. - Labs CBC & Chem 7: 06/12/21 00:01 06/13/21 08:50 Labs: Abnormal Lab Results - Last 24 Hours (Table) 06/13/21 Range/Units 08:50 Sodium 136 L (137-145) mmol/L Glucose 141 H (74-99) mg/dL Assessment and Plan Assessment: non-STEMI status post PCI to the distal RCA History of coronary artery disease status post stent placement Hypertension Hyperlipidemia History of osteoarthritis History of sleep apnea on CPAP/BiPAP History of esophagitis History of gastritis History of diverticular disease and rectal bleeding Morbid obesity with BMI of 41.1 Plan: this is a pleasant 71 years old male who presents with non-STEMI Continue with heparin drip, continue with aspirin and brillinta , also c/w losartan and metoprolol Cardiology consult Labs and medication were reviewed.. Continue same treatment. Continue with symptomatic treatment. Resume home medication. Monitor lytes and vitals. DVT and GI prophylaxis. Further recommendations as per clinical course of the patient DVT prophylaxis: heparin GI Prophylaxis: Pepcid
[2021-06-13] MEDS: ATORVASTATIN 80 MG TAB PO SCH (20:26)
[2021-06-14] MEDS: SODIUM CHLORIDE 0.9% 1,000 ML in EMPTY BAG 1 BAG IV SCH ×2 (04:40→09:59)
[2021-06-14] MEDS: amLODIPine 5 MG TAB PO SCH (07:31)
[2021-06-14] MEDS: LOSARTAN 50 MG TAB PO SCH (07:31)
[2021-06-14] MEDS: FUROSEMIDE 10 MG/ML 4 ML VIAL IV SCH (07:31)
[2021-06-14] MEDS: TICAGRELOR 90 MG TAB PO SCH (07:31)
[2021-06-14] MEDS: ASPIRIN 81 MG PO SCH (07:31)
[2021-06-14] MEDS: METOPROLOL TARTRATE 25 MG TAB PO SCH (07:31)
--- NOTE | 2021-06-14 13:33 | P.PN ---
Subjective Progress Note Date: 06/14/21 HISTORY OF PRESENT ILLNESS: This is a 71-year-old male with a past medical history significant for coronary artery disease with previous stenting to the LAD in 2016, hypertension, hy perlipidemia with statin intolerance, and former nicotine dependence. Patient follows in the office with Dr. Oro. We have been asked to see the patient in consultation for chest pain. Patient examined at the bedside. patient states he began having chest discomfort yesterday. He states he was down his basement working when he began having some discomfort in his legs so he came upstairs and was watching TV. He states he then began having chest pain in the middle of his chest that felt like a sharp pain and also like a heavy pressure. He reports radiation to the left arm. He denies feeling short of breath. He states the pain has been intermittent since yesterday. The patient reports having chest pain this morning. He has received 3 sublingual nitro. He states each time his pain comes back it is worse than the previous episode. He reports diaphoresis. He denies nausea or vomiting. He is currently on a heparin drip. * EKG reveals sinus mechanism with no signs of acute ischemia * Chest xray no active cardiopulmonary disease. * Laboratory data: W BC 7.5. Hemoglobin 15.2. Platelet count 223. Sodium 135. Potassium 3.8. BUN 14. Creatinine 1.01. Troponin 0.161. 0.191. ProBNP 71. * Current home cardiac medications include Norvasc 5 mg daily, Crestor 5 mg daily, * Most recent echocardiogram obtained in May 2021 * Patient underwent Lexiscan stress test in December 2019 which was negative for ischemia * Patient underwent cardiac catheterization in October 2015 to [facility] with stenting to the LAD 06/13/2021 Patient is status post cardiac catheterization revealing patent proximal LAD stent with only 10-20% in-stent stenosis as well as 99% distal RCA stenosis. Patient underwent stenting to the distal RCA. Patient was also found to have el evated left-sided filling pressures. He was started on IV Lasix. Echocardiogram completed revealing ejection fraction 45-50%, moderate mitral regurgitation, and mild tricuspid regurgitation. 06/14/2021 Patient examined at the bedside. Patient denies chest pain or pressure. Denies SOB. Vital signs stable. PHYSICAL EXAM: VITAL SIGNS: Reviewed. GENERAL: Well-developed in no acute distress. HEENT: Head is normocephalic. Pupils are equal, round. Sclerae anicteric. Mucous membranes of the mouth are moist. Neck supple. No JVD or thyromegaly LUNGS: Respirations even and unlabored. Lungs essentially clear to auscultation bilaterally. HEART: Regular rate and rhythm. S1 and S2 heard. ABDOMEN: Soft. Nondistended. Nontender. EXTREMITIES: Normal range of motion. No clubbing or cyanosis. Peripheral pulses intact. No lower extremity edema NEUROLOGIC: Awake and alert. Oriented x 3. ASSESSMENT: Chest pain Non-STEMI status post cardiac catheterization with PCI to the RCA Coronary artery disease with previous PCI to LAD Hypertension Hyperlipidemia with history of statin myopathy tolerating low-dose Crestor an outpatient basis Obstructive sleep apnea with CPAP use Former nicotine dependence PLAN: Continue current cardiac medications Patient may be discharged home this afternoon Follow up outpatient with Dr. Oro Nurse practitioner note has been reviewed by physician. Signing provider agrees with the documented findings, assessment, and plan of care. Objective - Vital Signs Vital signs: Vital Signs Temp 97.9 F 06/14/21 07:30 Pulse 62 06/14/21 11:00 Resp 16 06/14/21 11:00 BP 119/73 06/14/21 11:00 Pulse Ox 95 06/14/21 11:00 Intake & Output 06/13/21 06/14/21 06/14/21 18:59 06:59 18:59 Intake Total 598 Balance 598 Weight 126.099 kg Intake: Oral 598 Other: Voiding Method Toilet Toilet Toilet # Voids 2 2 3 - Labs CBC & Chem 7: 06/12/21 00:01 06/13/21 08:50 Labs: Abnormal Lab Results - Last 24 Hours (Table) 06/13/21 Range/Units 08:50 HDL Cholesterol 29.80 L (40.00-60.00) mg/dL
[2021-06-14 16:11] VITALS: BP 144/72; PULSE 82; RESP 18; TEMP 98.4
== END 2021-06-14 16:54 | disposition home or self-care (01) | DRG 246 ==
LOC: EC 21:10 → 3SCARD 06-12 01:26
PROVIDERS: ADMIT Hospitalist; ATTEND Hospitalist
PROC: 4A023N7 Measurement of Cardiac Sampling and Pressure, Left Heart, Percutaneous Approach (ICD-10-PCS; 2021-06-12)
PROC: B2111ZZ Fluoroscopy of Multiple Coronary Arteries using Low Osmolar Contrast (ICD-10-PCS; 2021-06-12)
PROC: 027134Z Dilation of Coronary Artery, Two Arteries with Drug-eluting Intraluminal Device, Percutaneous Approach (ICD-10-PCS; principal; 2021-06-12 10:11)
PROC: 02C13ZZ Extirpation of Matter from Coronary Artery, Two Arteries, Percutaneous Approach (ICD-10-PCS; 2021-06-12 10:11)
DX: I21.4 Non-ST elevation (NSTEMI) myocardial infarction (principal); Z68.41 Body mass index [BMI] 40.0-44.9, adult; E66.01 Morbid (severe) obesity due to excess calories; E78.5 Hyperlipidemia, unspecified; G47.33 Obstructive sleep apnea (adult) (pediatric); I10 Essential (primary) hypertension; I25.10 Atherosclerotic heart disease of native coronary artery without angina pectoris; Z79.82 Long term (current) use of aspirin; Z79.899 Other long term (current) drug therapy; Z80.1 Family history of malignant neoplasm of trachea, bronchus and lung; Z80.8 Family history of malignant neoplasm of other organs or systems; Z82.3 Family history of stroke; Z87.891 Personal history of nicotine dependence; Z95.5 Presence of coronary angioplasty implant and graft; Z96.1 Presence of intraocular lens; Z96.641 Presence of right artificial hip joint; Z88.8 Allergy status to other drugs, medicaments and biological substances
CPT/HCPCS: 36415; 71045; 80048; 80053; 80061; 83690; 83735; 83880; 84484; 85025; 85610; 85730; 93005; 93306; 93458; 96374; 99291

== ENCOUNTER → 2022-06-10 | Outpatient (CLI) | payer MEDICARE, OTHER ==
[2022-06-10 22:37] LABS: HGB 15.1 g/dL (13.0-17.0); MCH 31.5 pg (27.0-32.0); MCHC 32.8 g/dL (32.0-37.0); MCV 95.8 fL (80.0-97.0); Mean Platelet Volume 10.7 fL (9.5-12.2); NRBC Per 100 WBC 0 /100 WBCS (0.0-0.0); Platelet Count 246 X 10*3/uL (140-440); RDW 12.1 % (11.5-14.5); WBC 5.29 X 10*3/uL (4.50-10.00)
[2022-06-10 22:49] LABS: ALT 85 U/L (10-49); AST 54 U/L (14-35); African American GFR (CKD) 88.3 (60.0-200.0); BUN/Creat Ratio 15.52 Ratio (12.00-20.00); Blood Urea Nitrogen 15.3 mg/dL (9.0-27.0); Calcium 9.9 mg/dL (8.7-10.3); Carbon Dioxide 23.7 mmol/L (20.0-27.5); Chloride 102 mmol/L (96-109); Chol/HDL Ratio 5.13 Ratio; Glucose 115 mg/dL (70-110); LDL Cholesterol,Calculated 96.3 mg/dL (0.0-131.0); Non-African American GFR(CKD) 76.2 (60.0-200.0); Potassium 4.5 mmol/L (3.5-5.5); Sodium 139 mmol/L (135-145)
== END | disposition home or self-care (01) ==
LOC: LABWHC1 11:15
PROVIDERS: ATTEND Nurse Practitioner Acute Care
DX: I10 Essential (primary) hypertension (principal); E78.2 Mixed hyperlipidemia; R07.9 Chest pain, unspecified
CPT/HCPCS: 36415; 80048; 80061; 84450; 84460; 84484; 85027

== ENCOUNTER → 2022-09-30 | Outpatient (CLI) | payer MEDICARE, OTHER ==
[2022-09-30 15:33] LABS: ALT 52 U/L (10-49); AST 39 U/L (14-35); Chol/HDL Ratio 4.91 Ratio
== END | disposition home or self-care (01) ==
LOC: LABWHC1 10:47
PROVIDERS: ATTEND Internal Medicine
DX: E78.2 Mixed hyperlipidemia (principal)
CPT/HCPCS: 36415; 80061; 84450; 84460

== ENCOUNTER → 2023-03-17 | Outpatient (CLI) | payer MEDICARE, OTHER ==
[2023-03-17 20:20] LABS: ALT 32 U/L (10-49); AST 25 U/L (14-35); Chol/HDL Ratio 5.65 Ratio; LDL Cholesterol,Calculated 108.1 mg/dL (0.0-131.0)
== END | disposition home or self-care (01) ==
LOC: LABWHC1 12:47
PROVIDERS: ATTEND Internal Medicine
DX: E78.2 Mixed hyperlipidemia (principal)
CPT/HCPCS: 36415; 80061; 84450; 84460

== ENCOUNTER 2023-11-10 10:35 | Day surgery (SDC) | payer MEDICARE, OTHER ==
[~2023-11-10 10:35] MED LIST changes: +ALPRAZolam 0.25 MG TAB PO PRN; +ALPRAZolam 0.5 MG TAB PO PRN; +ASPIRIN 325 MG TAB PO ONE; -LACTATED RINGERS 1,000 ML IV SCH; +NITROGLYCERIN SL TABS 0.4 MG TAB SUBLINGUAL PRN; +SODIUM CHLORIDE 0.9% 1,000 ML in EMPTY BAG 1 BAG IV SCH
[2023-11-10] MEDS: SODIUM CHLORIDE 0.9% 1,000 ML IV ONE (11:04)
[2023-11-10 11:32] VITALS: RESP 16; TEMP 97.6
[2023-11-10] MEDS ORDERED: fentaNYL (PF) 50 MCG/ML 2 ML AMP ONE (11:56)
[2023-11-10] MEDS ORDERED: HEPARIN SODIUM 1,000 UN/ML (10ML VL) ONE (11:56)
[2023-11-10] MEDS: fentaNYL (PF) 50 MCG/ML 2 ML AMP IVP ONE (12:07)
[2023-11-10] MEDS: MIDAZOLAM 2 MG/2 ML VIAL IVP ONE (12:07)
[2023-11-10] MEDS: LIDOCAINE 1% INJ 10MG/ML (20 ML MDV) SQ ONE (12:11)
[2023-11-10] MEDS: VERAPAMIL SYRINGE (5 MG/10 ML) INTRAARTER ONE (12:12)
[2023-11-10] MEDS: HEPARIN SODIUM 1,000 UN/ML (10ML VL) IV ONE (12:15)
[2023-11-10] MEDS: IOPAMIDOL-370 200ML BTL INJ ONE (12:36)
--- NOTE | 2023-11-10 14:45 | P.CARDCATH ---
Description of Procedure: PROCEDURES PERFORMED: Left heart catheterization, bilateral coronary angiography, ultrasound guided arterial access, iFR of RCA INDICATION: increasing shortness of breath with exertion consistent with unstable angina CONSENT:I have discussed the risks, benefits and alternative therapies for the above-mentioned procedure and for both sedation/analgesia as well as necessary blood product administration, if indicated, as they pertain to this patient. The patient has indicated understanding and acceptance of the risks and procedur es discussed. PROCEDURE: After the risks, benefits and alternatives of the above mentioned procedure explained in detail with the patient, informed consent was obtained. Patient was taken to the catheterization lab and prepped and draped in usual fashion. Ultrasound guidance was used to assess for arterial access. 1% lidocaine was used to anesthetize the right radial artery. A 6-Yoruba sheath was placed in the right radial artery using modified Seldinger technique and ultrasound guidance. Left coronary angiography was performed with a 6-Yoruba JL 4.0 catheter and right coronary angiography was performed with a 6-Yoruba AL1 catheter in various views. A 6-Yoruba AL1 catheter was inserted into the left ventricle and pressure measurements were obtained. There was some dampening when engaging RCA with a lesion appearing 40-50% stenosis and therefore decision was made to perform functional assessment. Room was given. Using the AL-1 catheter, a 0.014 pressure wire was advanced to the ostial RCA and normalized. It was then advanced 1-2 cm distal to the lesion and was noted to be normal at 0.95 without any significant drift. The right radial sheath was removed and a TR band was placed with hemostasis achieved. The patient tolerated the procedure well. Patient was transported back to the post catheterization holding area in stable condition. Conscious Sedation: Patient was monitored under the direct supervision of myself for conscious sedation using Versed and fentanyl for a total duration of 27 minutes HEMODYNAMICS: aorta: 137/78 LV: 132/12, LVEDP 23 SELECTIVE CORONARY ARTERIOGRAPHY: LEFT MAIN: The left main is a large caliber vessel which bifurcates into the LAD and circumflex. There is no significant stenosis. LEFT ANTERIOR DESCENDING CORONARY ARTERY: LAD is a large caliber vessel which wraps around to the apex. There is ostial LAD 20-30% stenosis and a patent proximal LAD stents with mid 30-40% stenosis and otherwise mild luminal irregularities. LEFT CIRCUMFLEX CORONARY ARTERY: Left circumflex is a moderate caliber vessel with mild luminal irregularities. RIGHT CORONARY ARTERY: The right coronary artery is a large caliber vessel which gives off a PDA and PLV branch and is the dominant vessel. There is a proximal 40-50% stenosis and otherwise patent distal RCA stent and mild luminal irregularities FINAL IMPRESSION: 1. CAD as described above including mid LAD 30-40% stenosis and approximately RCA 40-50% stenosis 2. Normal iFR of RCA 3. Elevated left sided filling pressures PLAN: 1. Aggressive risk factor modification per most recent ACC/AHA guidelines. 2. Consider diuretic if he continues to be symptomatic
[2023-11-10 16:46] VITALS: BP 144/64; PULSE 64
== END 2023-11-10 16:32 | disposition home or self-care (01) ==
LOC: CATHCVL 10:35
PROVIDERS: ATTEND Internal Medicine
DX: I25.110 Atherosclerotic heart disease of native coronary artery with unstable angina pectoris (principal)

== ENCOUNTER → 2024-04-01 | Outpatient (CLI) | payer MEDICARE, OTHER ==
[2024-04-01 15:35] LABS: ALT 40 U/L (10-49); AST 36 U/L (14-35); Chol/HDL Ratio 6.17 Ratio; LDL Cholesterol,Calculated 154.7 mg/dL (0.0-131.0)
== END | disposition home or self-care (01) ==
LOC: LABWHC1 09:39
PROVIDERS: ATTEND Nurse Practitioner Acute Care
DX: E78.2 Mixed hyperlipidemia (principal)
CPT/HCPCS: 36415; 80061; 84450; 84460

== ENCOUNTER → 2024-07-07 | Outpatient (CLI) | payer MEDICARE, OTHER ==
--- NOTE | 2024-07-07 13:36 | MR ---
EXAMINATION TYPE: MR shoulder LT wo con DATE OF EXAM: 07/07/2024 8:55 AM COMPARISON: None. CLINICAL INDICATION: Male, 74 years old with history of M75.102 rotator cuff L shoulder, Left shoulde r and forearm pain x 1 month, decreased ROM. IV Contrast: cc (None if empty) TECHNIQUE: Multiplanar, multisequence imaging of the left shoulder is performed without contrast. FINDINGS: There are a few small subchondral cysts bilateral. . There is marked osteoarthritic change of the AC joint with there is marked capsular thickening, hyper trophic spurring and small effusion. There is minimal shoulder impingement. There is mild thinning of the articular cartilage of the glenohumeral joint mild osteoarthritis. There is mild subacromial and subdeltoid bursitis. There is a full thickness tear of the supraspinatus 1 cm proximal to its insertion. There is slight r etraction medially. There is intrasubstance tear of the infraspinatus without retraction. There is tendinosis and small intrasubstance tear of the subscapularis tendon without retraction. The biceps tendon is normal in signal intensity and position within the bicipital groove. Biceps anch or is intact but there are tears within the superior cartilaginous labrum consistent with a SLAP inju ry. IMPRESSION: 1. Marked osteoarthritic change of the AC joint resulting in mild shoulder impingement. 2. Full-thickness tear of the supraspinatus and intrasubstance tears of the infraspinatus and subscap ularis tendons of the rotator cuff. 3. Mild subacromial subdeltoid bursitis. 4. SLAP injury of the cartilaginous labrum [facility], Workstation: MARY 07/07/2024 1:34 PM
== END | disposition home or self-care (01) ==
LOC: RADMRIMAIN 06-29 13:32
PROVIDERS: ATTEND Family Medicine
DX: Z53.9 Procedure and treatment not carried out, unspecified reason (principal)

== ENCOUNTER → 2024-08-03 | Outpatient (CLI) | payer MEDICARE, OTHER ==
[2024-08-03 18:57] LABS: ALT 29 U/L (10-49); AST 29 U/L (14-35); Chol/HDL Ratio 4.42 Ratio; LDL Cholesterol,Calculated 50.4 mg/dL (0.0-131.0)
== END | disposition home or self-care (01) ==
LOC: LABWHC1 13:03
PROVIDERS: ATTEND Internal Medicine
DX: E78.2 Mixed hyperlipidemia (principal)
CPT/HCPCS: 36415; 80061; 84450; 84460